=== PATIENT | male | born 1945 | race Caucasian/White ===

== ENCOUNTER → 2017-02-06 | Outpatient (CLI) | payer MEDICARE ==
--- NOTE | 2017-02-06 13:38 | XR ---
EXAMINATION TYPE: XR chest 2V DATE OF EXAM: 02/06/2017 COMPARISON: NONE HISTORY: Acute bronchitis, cough, cold-like symptoms TECHNIQUE: Frontal and lateral views of the chest are obtained. FINDINGS: There is no focal air space opacity, pleural effusion, or pneumothorax seen. The cardiac silhouette size is within normal limits. Nodular density in the right lower chest is dense and may r epresent a calcified granuloma. Postop change noted to the right shoulder. There is bronchial wall th ickening. Patient is rotated. The osseous structures are intact. IMPRESSION: Correlate for reactive airways disease, bronchitis. There may be granulomatous disease, consider short interval follow-up to assess for stability or alternatively comparison with old films if available to assess for stability. Chest CT could be performed for increased sensitivity.
== END | disposition home or self-care (01) ==
LOC: RADXRMAIN 12:57
PROVIDERS: ATTEND Family Medicine
DX: J40 Bronchitis, not specified as acute or chronic (principal)
CPT/HCPCS: 71020

== ENCOUNTER 2017-04-23 09:18 | Inpatient (IN) | payer MEDICARE ==
[2017-04-23] MEDS ORDERED: SODIUM CHLORIDE 0.9% 2,000 ML IV ONE (10:24)
[2017-04-23] MEDS ORDERED: IV VANCOMYCIN PER PHARMACY 1 EACH MISC MISCELLANE PRN (10:24)
--- NOTE | 2017-04-23 10:53 | ED ---
Skin/Abscess/FB HPI - General Chief complaint: Skin/Abscess/Foreign Body Stated complaint: left armpit lump Source: patient, family Mode of arrival: ambulatory Limitations: no limitations - History of Present Illness Initial comments: Patient is a 71-year-old male who presents for evaluation for worsening redness and pain to the left chest wall. Past medical history as below. Patient stated he developed a redness and pain to the left chest wall. He saw his primary care physician who provided an IM shot of an antibiotic which patient does not remember the name of and a prescription for Keflex as an outpatient which she's been compliant with. The redness was demarcated by the primary care physician. He noticed worsening redness outside of the lines. He also stated that he's been having intermittent fevers with a T-max of 102. He discussed this with his primary care physician who recommended evaluation in the emergency department. He states that he feels a little weak and run down but otherwise denies any headaches, URI symptoms, shortness breath, cough, chest pain, nausea, vomiting, diarrhea, pain or burning with urination. - Related Data Home Medications Medication Instructions Recorded Confirmed Aspirin EC [Ecotrin] 325 mg PO DAILY 04/23/17 04/23/17 Atenolol 25 mg PO BID 04/23/17 04/23/17 Cephalexin [Keflex] 500 mg PO Q12HR 04/23/17 04/23/17 Ibuprofen [Motrin] 800 mg PO TID PRN 04/23/17 04/23/17 Loratadine [Claritin] 10 mg PO DAILY 04/23/17 04/23/17 Losartan/Hydrochlorothiazide 1 tab PO DAILY 04/23/17 04/23/17 [Losartan-Hctz 100-12.5 mg Tab] Omeprazole 20 mg PO DAILY 04/23/17 04/23/17 amLODIPine [Norvasc] 5 mg PO DAILY 04/23/17 04/23/17 Allergies Allergy/AdvReac Type Severity Reaction Status Date / Time Sulfa (Sulfonamide Allergy Unknown Verified 04/23/17 10:11 Antibiotics) Childhood Review of Systems ROS Statement: Those systems with pertinent positive or pertinent negative responses have been documented in the HPI. ROS Other: All systems not noted in ROS Statement are negative. Past Medical History Past Medical History: GERD/Reflux, Hypertension History of Any Multi-Drug Resistant Organisms: None Reported Past Surgical History: Hernia Repair, Orthopedic Surgery Past Psychological History: No Psychological Hx Reported Smoking Status: Former smoker Past Alcohol Use History: Daily, Occasional Past Drug Use History: None Reported General Exam Limitations: no limitations General appearance: alert, in no apparent distress, other (Nontoxic appearing) Head exam: Present: atraumatic, normocephalic, normal inspection Eye exam: Present: normal appearance, PERRL, EOMI. Absent: scleral icterus, conjunctival injection, periorbital swelling ENT exam: Present: normal exam, mucous membranes moist Neck exam: Present: normal inspection. Absent: tenderness, meningismus, lymphadenopathy Respiratory exam: Present: normal lung sounds bilaterally, chest wall tenderness (There are cellulitic changes to the left lateral chest wall. Questionable area of fluctuance suggestive of an abscess. The total size is roughly 7 cm x 5 cm. Tender to the touch.). Absent: respiratory distress, wheezes, rales, rhonchi, stridor Cardiovascular Exam: Present: regular rate, normal rhythm, normal heart sounds. Absent: systolic murmur, diastolic murmur, rubs, gallop, clicks GI/Abdominal exam: Present: soft, normal bowel sounds. Absent: distended, tenderness, guarding, rebound, rigid Extremities exam: Present: normal inspection, full ROM, normal capillary refill. Absent: tenderness, pedal edema, joint swelling, calf tenderness Back exam: Present: normal inspection Neurological exam: Present: alert, oriented X3, CN II-XII intact Psychiatric exam: Present: normal affect, normal mood Skin exam: Present: warm, dry, intact, normal color. Absent: rash Course Vital Signs 04/23/17 04/23/17 09:40 11:37 Temperature 96.8 F L 98 F Pulse Rate 63 59 L Respiratory 16 18 Rate Blood Pressure 179/74 154/74 O2 Sat by Pulse 95 95 Oximetry Medical Decision Making - Medical Decision Making 1018: Patient is a 71-year-old male who presents for evaluation for worsening cellulitic changes to the left lateral chest wall with possible abscess formation. He failed outpatient therapy of Keflex. Continues to have high temperatures. We'll order blood cultures, basic labs with a lactic acid, ultrasound of the left lateral chest wall to evaluate for abscess formation. Urinalysis. 2 L IV fluid bolus, vancomycin, cefepime. Patient does not have any surgical criteria based on his current vital signs. 1125: Reevaluated the patient. He remains nontoxic appearing. Awaiting laboratory studies and ultrasound. He also has not received his medications at this time. 1210: Updated the patient on his laboratory studies. No leukocytosis or lactic acidosis. Blood cultures are pending. Awaiting ultrasound. Page 2 admitting physician for admission for failed outpatient antibiotics and worsening cellulitic changes with fevers at home. 1222: Spoke with Dr. Louis -agrees with admission. Requesting consult to Dr. Agudelo for ID. - Lab Data Result diagrams: 04/23/17 11:08 04/23/17 11:08 Lab Results 04/23/17 04/23/17 04/23/17 Range/Units 11:08 11:08 11:08 WBC 11.4 H (3.8-10.6) k/uL RBC 3.25 L (4.30-5.90) m/uL Hgb 11.2 L (13.0-17.5) gm/dL Hct 32.4 L (39.0-53.0) % MCV 99.5 (80.0-100.0) fL MCH 34.5 (25.0-35.0) pg MCHC 34.7 (31.0-37.0) g/dL RDW 13.0 (11.5-15.5) % Plt Count 239 (150-450) k/uL Neutrophils % 77 % Lymphocytes % 13 % Monocytes % 5 % Eosinophils % 2 % Basophils % 1 % Neutrophils # 8.8 H (1.3-7.7) k/uL Lymphocytes # 1.5 (1.0-4.8) k/uL Monocytes # 0.6 (0-1.0) k/uL Eosinophils # 0.2 (0-0.7) k/uL Basophils # 0.1 (0-0.2) k/uL Sodium 132 L (137-145) mmol/L Potassium 4.5 (3.5-5.1) mmol/L Chloride 96 L (98-107) mmol/L Carbon Dioxide 25 (22-30) mmol/L Anion Gap 11 mmol/L BUN 16 (9-20) mg/dL Creatinine 0.89 (0.66-1.25) mg/dL Est GFR (MDRD) Af Amer >60 (>60 ml/min/1.73 sqM) Est GFR (MDRD) Non-Af >60 (>60 ml/min/1.73 sqM) Glucose 82 (74-99) mg/dL Plasma Lactic Acid Jarrett 1.0 (0.7-2.0) mmol/L Calcium 8.5 (8.4-10.2) mg/dL Total Bilirubin 0.4 (0.2-1.3) mg/dL AST 29 (17-59) U/L ALT 41 (21-72) U/L Alkaline Phosphatase 104 (38-126) U/L Total Protein 6.8 (6.3-8.2) g/dL Albumin 3.7 (3.5-5.0) g/dL Disposition Clinical Impression: Cellulitis Disposition: ADMITTED IP TO THIS HOSP Condition: Good Referrals: Jameson Marcus DO [Primary Care Provider] - 1-2 days Decision to Admit Reason: Admit from EC
[2017-04-23] MEDS ORDERED: CEFEPIME 2 GM in SODIUM CHLORIDE 0.9% 50 ML IVPB SCH ×2 (11:00→21:00)
[2017-04-23] MEDS ORDERED: VANCOMYCIN 1,750 MG in SODIUM CHLORIDE 0.9% 250 ML IVPB ONE (11:00)
[2017-04-23] MEDS ORDERED: CEFEPIME 2 GM in SODIUM CHLORIDE 0.9% 50 ML IVPB ONE (11:30)
[2017-04-23 11:41] LABS: Basophils # (A) 0.1 k/uL (0-0.2); Basophils % (A) 1 %; CH 35.2; CHCM 35.5; Eosinophils # (A) 0.2 k/uL (0-0.7); Eosinophils % (A) 2 %; HCT 32.4 % (39.0-53.0); HDW 2.32; HGB 11.2 gm/dL (13.0-17.5); Luc # (Auto) 0.31; Luc % (Auto) 3; Lymphocytes # (A) 1.5 k/uL (1.0-4.8); Lymphocytes % (A) 13 %; MCH 34.5 pg (25.0-35.0); MCHC 34.7 g/dL (31.0-37.0); MCV 99.5 fL (80.0-100.0); Monocytes # (A) 0.6 k/uL (0-1.0); Monocytes % (A) 5 %; Neutrophils # (A) 8.8 k/uL (1.3-7.7); Neutrophils % (A) 77 %; RBC 3.25 m/uL (4.30-5.90); WBC 11.4 k/uL (3.8-10.6); WBC (Perox) 11.53
[2017-04-23 11:54] LABS: ALT 41 U/L (21-72); AST 29 U/L (17-59); Alkaline Phosphatase 104 U/L (38-126); Anion Gap 11 mmol/L; Blood Urea Nitrogen 16 mg/dL (9-20); Calcium 8.5 mg/dL (8.4-10.2); Carbon Dioxide 25 mmol/L (22-30); Chloride 96 mmol/L (98-107); Glucose 82 mg/dL (74-99); Non-African American GFR(MDRD) >60 (>60 ml/min/1.73 sqM); Potassium 4.5 mmol/L (3.5-5.1); Sodium 132 mmol/L (137-145); Total Bilirubin 0.4 mg/dL (0.2-1.3); Total Protein 6.8 g/dL (6.3-8.2)
--- NOTE | 2017-04-23 12:20 | US ---
EXAMINATION TYPE: US axilla extremity LT DATE OF EXAM: 04/23/2017 COMPARISON: NONE CLINICAL HISTORY: Pain. Left lateral chest/armpit palpable/painful area x 1 week Scanned left axilla: 2.6 x 0.9 x 3.5cm irregular complex area. IMPRESSION: 1. There is a 2.6 x 3.5 cm irregular area within the palpable abnormality. Mass or abscess in the dif ferential. Consider follow-up MRI and correlate clinically.
[2017-04-23] MEDS ORDERED: NALOXONE 0.4 MG/ML 1 ML VIAL IV PRN (12:23)
[2017-04-23 12:40] LABS: Appearance,Urine Clear (Clear); Bilirubin,Urine Negative (Negative); Glucose,Urine (UA) Negative (Negative); Ketones,Urine Negative (Negative); Leukocyte Esterase,Urine Negative (Negative); Nitrite,Urine Negative (Negative); PH, Urine 6.5 (5.0-8.0); Protein,Urine Trace (Negative); Specific Gravity,Urine 1.009 (1.001-1.035); UA Billing (MACRO vs. MICRO) CHEM; Urobilinogen,Urine <2.0 mg/dL (<2.0)
[2017-04-23 14:05] VITALS: BMI 28.4
--- NOTE | 2017-04-23 14:11 | P.HPIM ---
History of Present Illness H&P Date: 04/23/17 Chief Complaint: Abscess This is a 71-year-old male patient of Dr. Marcus with a past medical history of hypertension and gastroesophageal reflux disease. Patient and his are seen in the emergency center where he states he woke up last Thursday or Thursday and thought he had a bug bite under his left arm with reddness and swelling. He had a scheduled follow-up appointment for bronchitis on Thursday with Dr. Marcus and was placed on Keflex which he took but despite this, the area continued to grow in size with increasing redness. He came into [facility] emergency center today for evaluation. Axilla ultrasound reveals a 2.6 x 3.5 cm irregular area. Mass or abscess is in the differential. White count was 11.4 and he has been afebrile. Patient has been started on cefepime and vancomycin. Consults have been requested with infectious disease, Dr. Agudelo and general surgeon, Dr. Decker. Patient will be admitted to the [facility] floor. Patient is not currently established with surgeon in the area and has had previous surgeries and colonoscopy in [facility]. Review of Systems All systems: negative Constitutional: Denies chills, Denies fever Eyes: denies blurred vision, denies pain Ears, nose, mouth and throat: Denies headache, Denies sore throat Cardiovascular: Denies chest pain, Denies shortness of breath Respiratory: Denies cough Gastrointestinal: Denies abdominal pain, Denies diarrhea, Denies nausea, Denies vomiting Musculoskeletal: Denies myalgias Integumentary: Reports growths, Reports wounds, Denies pruritus, Denies rash Neurological: Denies numbness, Denies weakness Psychiatric: Denies anxiety, Denies depression Endocrine: Denies fatigue, Denies weight change Past Medical History Past Medical History: GERD/Reflux, Hypertension Additional Past Medical History / Comment(s): Hayfever History of Any Multi-Drug Resistant Organisms: None Reported Past Surgical History: Hernia Repair, Orthopedic Surgery, Tonsillectomy Additional Past Surgical History / Comment(s): bilateral inguinal hernia repairs , colonoscopy with polypectomy, bilateral cataract removals, epidural lumbar injections/cauterization of nerves, R rotator cuff shoulder surgery with pins. Past Anesthesia/Blood Transfusion Reactions: No Reported Reaction Past Psychological History: No Psychological Hx Reported Additional Psychological History / Comment(s): Pt resides with his spouse. He is independent. Smoking Status: Former smoker Past Alcohol Use History: Daily Additional Past Alcohol Use History / Comment(s): Pt started smoking as a teen and quit in 1976. Pt states he drinks 1-6 beers a day approximate 3 times per week but denies difficulty with alcohol. No medical marijuana or marijuana, street drug use. He lives at home with his of 20 years. Past Drug Use History: None Reported - Past Family History Father Family Medical History: No Reported History Additional Family Medical History / Comment(s): Father was healthy. He lived to be 73 or 74 yrs old. He from a "blood disease." Mother Family Medical History: Dementia Additional Family Medical History / Comment(s): Mother at the age of 73 yrs with history of Alzheimer's. Brother(s) Additional Family Medical History / Comment(s): Patient has total of 8 brothers and sisters and one of a drug overdose. Patient has one daughter with history of spina bifida. Medications and Allergies Home Medications Medication Instructions Recorded Confirmed Type Aspirin EC [Ecotrin] 325 mg PO DAILY 04/23/17 04/23/17 History Atenolol 25 mg PO BID 04/23/17 04/23/17 History Cephalexin [Keflex] 500 mg PO Q12HR 04/23/17 04/23/17 History Ibuprofen [Motrin] 800 mg PO TID PRN 04/23/17 04/23/17 History Loratadine [Claritin] 10 mg PO DAILY 04/23/17 04/23/17 History Losartan/Hydrochlorothiazide 1 tab PO DAILY 04/23/17 04/23/17 History [Losartan-Hctz 100-12.5 mg Tab] Omeprazole 20 mg PO DAILY 04/23/17 04/23/17 History amLODIPine [Norvasc] 5 mg PO DAILY 04/23/17 04/23/17 History Allergies Allergy/AdvReac Type Severity Reaction Status Date / Time Sulfa (Sulfonamide Allergy Unknown Verified 04/23/17 10:11 Antibiotics) Childhood Physical Exam Vitals: Vital Signs Temp Pulse Resp BP Pulse Ox 04/23/17 12:59 98 F 71 18 169/85 94 L 04/23/17 11:37 98 F 59 L 18 154/74 95 04/23/17 09:40 96.8 F L 63 16 179/74 95 Intake and Output 04/22/17 04/23/17 04/23/17 22:59 06:59 14:59 Intake Total 2500 Output Total 250 Balance 2250 Intake: Amount of Fluid Infused ( 2500 ml) Output: Urine 250 Other: Weight 77.111 kg Patient Weight 04/24/17 06:59 Weight 77.111 kg Gen: This is a 71-year-old male. He is sitting up on the stretcher and appears to be comfortable. HEENT: Head is atraumatic, normocephalic. Pupils equal, round. Sclerae is anicteric. NECK: Supple. No JVD. No lymphadenopathy. No thyromegaly. LUNGS: Clear to auscultation. No wheezes or rhonchi. No intercostal retractions. HEART: Regular rate and rhythm. No murmur. ABDOMEN: Soft. Bowel sounds are present. No masses. No tenderness. EXTREMITIES: No pedal edema. No calf tenderness. There is a large mass under the left axilla extending into the anterior and lateral chest wall with firmness and surrounding erythema NEUROLOGICAL: Patient is awake, alert and oriented x3. Cranial nerves 2 through 12 are grossly intact. Results CBC & Chem 7: 04/23/17 11:08 04/23/17 11:08 Labs: Abnormal Lab Results - Last 24 Hours (Table) 04/23/17 04/23/17 04/23/17 Range/Units 11:08 11:08 12:25 WBC 11.4 H (3.8-10.6) k/uL RBC 3.25 L (4.30-5.90) m/uL Hgb 11.2 L (13.0-17.5) gm/dL Hct 32.4 L (39.0-53.0) % Neutrophils # 8.8 H (1.3-7.7) k/uL Sodium 132 L (137-145) mmol/L Chloride 96 L (98-107) mmol/L Urine Protein Trace H (Negative) Thrombosis Risk Factor Assmnt - DVT/VTE Prophylaxis DVT/VTE Prophylaxis: Pharmacologic Prophylaxis ordered - Choose All That Apply Any of the Below Risk Factors Present?: Yes Each Factor Represents 1 point: Obesity (BMI >25) Other Risk Factors: Yes Each Risk Factor Represents 2 Points: Age 61-74 years Other congenital or acquired thrombophilia - If yes, enter type in comment: No Thrombosis Risk Factor Assessment Total Risk Factor Score: 3 Thrombosis Risk Factor Assessment Level: Moderate Risk Assessment and Plan Plan: 1. Left axilla abscess failed outpatient treatment. Patient is currently on cefepime and vancomycin. Consult with Dr. Agudelo and general surgeon, Dr Decker. 2. Hypertension. Continue atenolol 25 mg twice daily, Norvasc 5 mg daily, losartan hydrochlorothiazide 1 daily. 3. Gastrointestinal prophylaxis and gastroesophageal reflux disease. Continue omeprazole. 4. History of regular alcohol intake, monitor for DTs. 5. DVT prophylaxis. Heparin subcu. Patient will be admitted to the hospital for a minimum of 2 night stay. Discharge plan: Return home Impression and plan of care have been directed as dictated by the signing physician. Miranda Jasso nurse practitioner acting as scribe for signing physician.
--- NOTE | 2017-04-23 14:16 | P.CONS ---
History of Present Illness - Reason for Consult Consult date: 04/23/17 Abscess - History of Present Illness This is a 71-year-old male with a past medical history of hypertension and gastroesophageal reflux disease. Patient and his are seen in the emergency center where he states he woke up last Thursday or Thursday and thought he had a bug bite under his left arm with reddness and swelling. He had a scheduled follow-up appointment for bronchitis on Thursday with Dr. Marcus and was placed on Keflex which he took but despite this, the area continued to grow in size with increasing redness. He came into [facility] emergency center today for evaluation. Axilla ultrasound reveals a 2.6 x 3.5 cm irregular area. Mass or abscess is in the differential. White count was 11.4 and he has been afebrile. Patient has been started on cefepime and vancomycin. Consult with general surgeon, Dr. Decker. Blood culture has status received. Review of Systems All systems: negative Constitutional: Denies chills, Denies fever Eyes: denies blurred vision, denies pain Ears, nose, mouth and throat: Denies headache, Denies sore throat Cardiovascular: Denies chest pain, Denies shortness of breath Respiratory: Denies cough Gastrointestinal: Denies abdominal pain, Denies diarrhea, Denies nausea, Denies vomiting Musculoskeletal: Denies myalgias Integumentary: Reports growths, Reports wounds, Denies pruritus, Denies rash Neurological: Denies numbness, Denies weakness Psychiatric: Denies anxiety, Denies depression Endocrine: Denies fatigue, Denies weight change Past Medical History Past Medical History: GERD/Reflux, Hypertension Additional Past Medical History / Comment(s): Hayfever History of Any Multi-Drug Resistant Organisms: None Reported Past Surgical History: Hernia Repair, Orthopedic Surgery, Tonsillectomy Additional Past Surgical History / Comment(s): bilateral inguinal hernia repairs , colonoscopy with polypectomy, bilateral cataract removals, epidural lumbar injections/cauterization of nerves, R rotator cuff shoulder surgery with pins. Past Anesthesia/Blood Transfusion Reactions: No Reported Reaction Past Psychological History: No Psychological Hx Reported Additional Psychological History / Comment(s): Pt resides with his spouse. He is independent. Smoking Status: Former smoker Past Alcohol Use History: Daily Additional Past Alcohol Use History / Comment(s): Pt started smoking as a teen and quit in 1976. Pt states he drinks 1-6 beers a day approximate 3 times per week but denies difficulty with alcohol. No medical marijuana or marijuana, street drug use. He lives at home with his of 20 years. Past Drug Use History: None Reported - Past Family History Father Family Medical History: No Reported History Additional Family Medical History / Comment(s): Father was healthy. He lived to be 73 or 74 yrs old. He from a "blood disease." Mother Family Medical History: Dementia Additional Family Medical History / Comment(s): Mother at the age of 73 yrs with history of Alzheimer's. Brother(s) Additional Family Medical History / Comment(s): Patient has total of 8 brothers and sisters and one of a drug overdose. Patient has one daughter with history of spina bifida. Medications and Allergies Home Medications Medication Instructions Recorded Confirmed Type Aspirin EC [Ecotrin] 325 mg PO DAILY 04/23/17 04/23/17 History Atenolol 25 mg PO BID 04/23/17 04/23/17 History Cephalexin [Keflex] 500 mg PO Q12HR 04/23/17 04/23/17 History Ibuprofen [Motrin] 800 mg PO TID PRN 04/23/17 04/23/17 History Loratadine [Claritin] 10 mg PO DAILY 04/23/17 04/23/17 History Losartan/Hydrochlorothiazide 1 tab PO DAILY 04/23/17 04/23/17 History [Losartan-Hctz 100-12.5 mg Tab] Omeprazole 20 mg PO DAILY 04/23/17 04/23/17 History amLODIPine [Norvasc] 5 mg PO DAILY 04/23/17 04/23/17 History Allergies Allergy/AdvReac Type Severity Reaction Status Date / Time Sulfa (Sulfonamide Allergy Unknown Verified 04/23/17 10:11 Antibiotics) Childhood Physical Exam Vitals: Vital Signs Temp Pulse Pulse Resp BP BP Pulse Ox 04/23/17 13:53 96.0 F L 74 18 191/88 90 L 04/23/17 12:59 98 F 71 18 169/85 94 L 04/23/17 11:37 98 F 59 L 18 154/74 95 04/23/17 09:40 96.8 F L 63 16 179/74 95 Intake and Output 04/22/17 04/23/17 04/23/17 22:59 06:59 14:59 Intake Total 2500 Output Total 250 Balance 2250 Intake: Amount of Fluid Infused ( 2500 ml) Output: Urine 250 Other: Weight 79.5 kg Patient Weight 04/24/17 06:59 Weight 79.5 kg Gen: This is a 71-year-old male. He is sitting up on the stretcher and appears to be comfortable. HEENT: Head is atraumatic, normocephalic. Pupils equal, round. Sclerae is anicteric. NECK: Supple. No JVD. No lymphadenopathy. No thyromegaly. LUNGS: Clear to auscultation. No wheezes or rhonchi. No intercostal retractions. HEART: Regular rate and rhythm. No murmur. ABDOMEN: Soft. Bowel sounds are present. No masses. No tenderness. EXTREMITIES: No pedal edema. No calf tenderness. There is a large mass under the left axilla extending into the anterior and lateral chest wall with firmness and surrounding erythema NEUROLOGICAL: Patient is awake, alert and oriented x3. Cranial nerves 2 through 12 are grossly intact. Results Results: Laboratory Results WBC 11.4 k/uL (3.8-10.6) H 04/23/17 11:08 RBC 3.25 m/uL (4.30-5.90) L 04/23/17 11:08 Hgb 11.2 gm/dL (13.0-17.5) L 04/23/17 11:08 Hct 32.4 % (39.0-53.0) L 04/23/17 11:08 MCV 99.5 fL (80.0-100.0) 04/23/17 11:08 MCH 34.5 pg (25.0-35.0) 04/23/17 11:08 MCHC 34.7 g/dL (31.0-37.0) 04/23/17 11:08 RDW 13.0 % (11.5-15.5) 04/23/17 11:08 Plt Count 239 k/uL (150-450) 04/23/17 11:08 Neutrophils % 77 % 04/23/17 11:08 Lymphocytes % 13 % 04/23/17 11:08 Monocytes % 5 % 04/23/17 11:08 Eosinophils % 2 % 04/23/17 11:08 Basophils % 1 % 04/23/17 11:08 Neutrophils # 8.8 k/uL (1.3-7.7) H 04/23/17 11:08 Lymphocytes # 1.5 k/uL (1.0-4.8) 04/23/17 11:08 Monocytes # 0.6 k/uL (0-1.0) 04/23/17 11:08 Eosinophils # 0.2 k/uL (0-0.7) 04/23/17 11:08 Basophils # 0.1 k/uL (0-0.2) 04/23/17 11:08 Sodium 132 mmol/L (137-145) L 04/23/17 11:08 Potassium 4.5 mmol/L (3.5-5.1) 04/23/17 11:08 Chloride 96 mmol/L (98-107) L 04/23/17 11:08 Carbon Dioxide 25 mmol/L (22-30) 04/23/17 11:08 Anion Gap 11 mmol/L 04/23/17 11:08 BUN 16 mg/dL (9-20) 04/23/17 11:08 Creatinine 0.89 mg/dL (0.66-1.25) 04/23/17 11:08 Est GFR (MDRD) Af Amer >60 (>60 ml/min/1.73 sqM) 04/23/17 11:08 Est GFR (MDRD) Non-Af >60 (>60 ml/min/1.73 sqM) 04/23/17 11:08 Glucose 82 mg/dL (74-99) 04/23/17 11:08 Plasma Lactic Acid Jarrett 1.0 mmol/L (0.7-2.0) 04/23/17 11:08 Calcium 8.5 mg/dL (8.4-10.2) 04/23/17 11:08 Total Bilirubin 0.4 mg/dL (0.2-1.3) 04/23/17 11:08 AST 29 U/L (17-59) 04/23/17 11:08 ALT 41 U/L (21-72) 04/23/17 11:08 Alkaline Phosphatase 104 U/L (38-126) 04/23/17 11:08 Total Protein 6.8 g/dL (6.3-8.2) 04/23/17 11:08 Albumin 3.7 g/dL (3.5-5.0) 04/23/17 11:08 Urine Color Light Yellow 04/23/17 12:25 Urine Appearance Clear (Clear) 04/23/17 12:25 Urine pH 6.5 (5.0-8.0) 04/23/17 12:25 Ur Specific [place] 1.009 (1.001-1.035) 04/23/17 12:25 Urine Protein Trace (Negative) H 04/23/17 12:25 Urine Glucose (UA) Negative (Negative) 04/23/17 12:25 Urine Ketones Negative (Negative) 04/23/17 12:25 Urine Blood Negative (Negative) 04/23/17 12:25 Urine Nitrite Negative (Negative) 04/23/17 12:25 Urine Bilirubin Negative (Negative) 04/23/17 12:25 Urine Urobilinogen <2.0 mg/dL (<2.0) 04/23/17 12:25 Ur Leukocyte Esterase Negative (Negative) 04/23/17 12:25 CBC & Chem 7: 04/24/17 08:29 04/23/17 11:08 Labs: Abnormal Lab Results - Last 24 Hours (Table) 04/23/17 04/23/17 04/23/17 Range/Units 11:08 11:08 12:25 WBC 11.4 H (3.8-10.6) k/uL RBC 3.25 L (4.30-5.90) m/uL Hgb 11.2 L (13.0-17.5) gm/dL Hct 32.4 L (39.0-53.0) % Neutrophils # 8.8 H (1.3-7.7) k/uL Sodium 132 L (137-145) mmol/L Chloride 96 L (98-107) mmol/L Urine Protein Trace H (Negative) Assessment and Plan Plan: This is a 71-year-old male who presents to hospital with a left abscess of failed outpatient treatment with Keflex. He is currently on antibiotics in the form of cefepime and vancomycin. Cefepime will be changed to cefazolin and patient will be continued on vancomycin. Blood culture is status received. No current drainage. Consult in place for general surgeon, Dr Decker, with anticipation need for I&D and cultures may be obtained at that time. Toradol has been added for pain and inflammation scheduled IV. Continue supportive care. Further recommendations as patient progresses. The above dictated assessment and findings were discussed with Dr. Agudelo. The impression and plan of care have been directed as dictated. Miranda Jasso nurse practitioner acting as scribe for Dr. Agudelo.
[2017-04-23] MEDS: KETOROLAC 30 MG/ML 1 ML VIAL IVP SCH ×3 (14:26→23:53)
[2017-04-23] MEDS: amLODIPine 5 MG TAB PO SCH (15:12)
[2017-04-23] MEDS: LOSARTAN-HCTZ 50-12.5 MG 1 EACH TAB PO SCH (15:13)
[2017-04-23] MEDS: LOSARTAN 50 MG TAB PO SCH (15:13)
[2017-04-23] MEDS: HEPARIN SODIUM,PORCINE 5,000 UNIT/ML 1 ML VIAL SQ SCH ×2 (15:15→23:58)
[2017-04-23] MEDS ORDERED: LIDOCAINE 2% INJ 20 MG/ML (20 ML MDV) SQ ONE (15:58)
[2017-04-23] MEDS ORDERED: MORPHINE SULFATE 2 MG/ML SYRINGE IVP ONE (15:58)
--- NOTE | 2017-04-23 16:43 | P.GSCN ---
History of Present Illness Consult date: 04/23/17 Reason for Consult: Axillary Abscess Requesting physician: Aden Louis History of present illness: 71-year-old male presents to the hospital complaining of left axillary pain. He states that he had a pimple at the site that has grown over the past week. He states that he was trying antibiotics and had no success with this. He denies having any fevers chills chest pain or shortness of breath. He states that the redness around the site has increased and the site has not been draining anything. He denies having any similar symptoms previously. Has any history of diabetes. He denies any history of recent shaving of this area. No additional complaints at this time. Review of Systems All systems: negative Past Medical History Past Medical History: GERD/Reflux, Hypertension Additional Past Medical History / Comment(s): Hayfever History of Any Multi-Drug Resistant Organisms: None Reported Past Surgical History: Hernia Repair, Orthopedic Surgery, Tonsillectomy Additional Past Surgical History / Comment(s): bilateral inguinal hernia repairs , colonoscopy with polypectomy, bilateral cataract removals, epidural lumbar injections/cauterization of nerves, R rotator cuff shoulder surgery with pins. Past Anesthesia/Blood Transfusion Reactions: No Reported Reaction Past Psychological History: No Psychological Hx Reported Additional Psychological History / Comment(s): Pt resides with his spouse. He is independent. Smoking Status: Former smoker Past Alcohol Use History: Daily Additional Past Alcohol Use History / Comment(s): Pt started smoking as a teen and quit in 1976. Pt states he drinks 1-6 beers a day approximate 3 times per week but denies difficulty with alcohol. No medical marijuana or marijuana, street drug use. He lives at home with his of 20 years. Past Drug Use History: None Reported - Past Family History Father Family Medical History: No Reported History Additional Family Medical History / Comment(s): Father was healthy. He lived to be 73 or 74 yrs old. He from a "blood disease." Mother Family Medical History: Dementia Additional Family Medical History / Comment(s): Mother at the age of 73 yrs with history of Alzheimer's. Brother(s) Additional Family Medical History / Comment(s): Patient has total of 8 brothers and sisters and one of a drug overdose. Patient has one daughter with history of spina bifida. Medications and Allergies Home Medications Medication Instructions Recorded Confirmed Type Aspirin EC [Ecotrin] 325 mg PO DAILY 04/23/17 04/23/17 History Atenolol 25 mg PO BID 04/23/17 04/23/17 History Cephalexin [Keflex] 500 mg PO Q12HR 04/23/17 04/23/17 History Ibuprofen [Motrin] 800 mg PO TID PRN 04/23/17 04/23/17 History Loratadine [Claritin] 10 mg PO DAILY 04/23/17 04/23/17 History Losartan/Hydrochlorothiazide 1 tab PO DAILY 04/23/17 04/23/17 History [Losartan-Hctz 100-12.5 mg Tab] Omeprazole 20 mg PO DAILY 04/23/17 04/23/17 History amLODIPine [Norvasc] 5 mg PO DAILY 04/23/17 04/23/17 History Allergies Allergy/AdvReac Type Severity Reaction Status Date / Time Sulfa (Sulfonamide Allergy Unknown Verified 04/23/17 10:11 Antibiotics) Childhood Surgical - Exam Osteopathic Statement: *. No significant issues noted on an osteopathic structural exam other than those noted in the History and Physical/Consult. Vital Signs Temp Pulse Resp BP Pulse Ox 96.8 F L 63 16 179/74 95 04/23/17 09:40 04/23/17 09:40 04/23/17 09:40 04/23/17 09:40 04/23/17 09:40 - General well developed, well nourished, no distress - Eyes PERRL, normal ocular movement - ENT normal nares, no congestion - Neck no masses, trachea midline, no lymphadectomy - Respiratory normal expansion, clear to auscultation - Cardiovascular Rhythm: regular Heart Sounds: normal: S1, S2 - Abdomen Abdomen: soft, non tender, bowel sounds, no guarding, no rigid, no rebound, no distended - Integumentary Left axilla with palpable fluctuant center with induration surrounding and erythema surrounding. - Neurologic normal coordination, normal sensation - Musculoskeletal normal gait - Psychiatric oriented to time, oriented to person, oriented to place, speech is normal Results - Labs 04/23/17 11:08 04/23/17 11:08 Abnormal Lab Results - Last 24 Hours (Table) 04/23/17 04/23/17 04/23/17 Range/Units 11:08 11:08 12:25 WBC 11.4 H (3.8-10.6) k/uL RBC 3.25 L (4.30-5.90) m/uL Hgb 11.2 L (13.0-17.5) gm/dL Hct 32.4 L (39.0-53.0) % Neutrophils # 8.8 H (1.3-7.7) k/uL Sodium 132 L (137-145) mmol/L Chloride 96 L (98-107) mmol/L Urine Protein Trace H (Negative) Diabetes panel 04/23/17 Range/Units 11:08 Sodium 132 L (137-145) mmol/L Potassium 4.5 (3.5-5.1) mmol/L Chloride 96 L (98-107) mmol/L Carbon Dioxide 25 (22-30) mmol/L BUN 16 (9-20) mg/dL Creatinine 0.89 (0.66-1.25) mg/dL Glucose 82 (74-99) mg/dL Calcium 8.5 (8.4-10.2) mg/dL AST 29 (17-59) U/L ALT 41 (21-72) U/L Alkaline Phosphatase 104 (38-126) U/L Total Protein 6.8 (6.3-8.2) g/dL Albumin 3.7 (3.5-5.0) g/dL Calcium panel 04/23/17 Range/Units 11:08 Calcium 8.5 (8.4-10.2) mg/dL Albumin 3.7 (3.5-5.0) g/dL Pituitary panel 04/23/17 Range/Units 11:08 Sodium 132 L (137-145) mmol/L Potassium 4.5 (3.5-5.1) mmol/L Chloride 96 L (98-107) mmol/L Carbon Dioxide 25 (22-30) mmol/L BUN 16 (9-20) mg/dL Creatinine 0.89 (0.66-1.25) mg/dL Glucose 82 (74-99) mg/dL Calcium 8.5 (8.4-10.2) mg/dL Adrenal panel 04/23/17 Range/Units 11:08 Sodium 132 L (137-145) mmol/L Potassium 4.5 (3.5-5.1) mmol/L Chloride 96 L (98-107) mmol/L Carbon Dioxide 25 (22-30) mmol/L BUN 16 (9-20) mg/dL Creatinine 0.89 (0.66-1.25) mg/dL Glucose 82 (74-99) mg/dL Calcium 8.5 (8.4-10.2) mg/dL Total Bilirubin 0.4 (0.2-1.3) mg/dL AST 29 (17-59) U/L ALT 41 (21-72) U/L Alkaline Phosphatase 104 (38-126) U/L Total Protein 6.8 (6.3-8.2) g/dL Albumin 3.7 (3.5-5.0) g/dL - Imaging Additional studies: Reviewed ultrasound of the left axilla. 2.5 x 3.5 abscess noted. Assessment and Plan (1) Abscess Status: Acute Plan: 71-year-old male with left axillary abscess. Plan for incision and drainage of the site at bedside. I will place a packing into this site. Agree with antibiotic therapy. Will take cultures during drainage and will follow-up. Thank you for this consultation. I look forward in providing in this patient's care.
--- NOTE | 2017-04-23 16:48 | P.PCN ---
Date of Procedure: 04/23/17 Preoperative Diagnosis: Axillary abscess Left Postoperative Diagnosis: Axillary abscess left Procedure(s) Performed: Incision and drainage of left axillary abscess Implants: Anesthesia: local Surgeon: Sara Decker Estimated Blood Loss (ml): 5 Pathology: other (Cultures sent both aerobic and anaerobic) Condition: stable Disposition: floor Indications for Procedure: 71-year-old male complains of left axillary abscess that has increased in size and is fluctuant and surrounded by induration and erythema. Operative Findings: 10 mL of purulent drainage removed. Aerobic and Anaerobic cultures sent. Description of Procedure: The patient's left axilla was prepped and draped in regular sterile fashion. 2 % lidocaine was infused at the anticipated incision site. Incision was made. Immediate output of 10 mL of purulent material was noted. Cultures were taken. Hemostat was used to break up any loculations within the abscess cavity. Irrigation was then placed within the cavity. Iodoform packing was placed. Dressing applied. The patient tolerated the procedure well.
--- NOTE | 2017-04-23 20:35 | P.CON ---
Consult Note - . Consult date: 04/23/17 Assessment/Plan:: This is a 71-year-old male with a past medical history of hypertension and gastroesophageal reflux disease. Patient and his are seen in the emergency center where he states he woke up last Thursday or Thursday and thought he had a bug bite under his left arm with reddness and swelling. He had a scheduled follow-up appointment for bronchitis on Thursday with Dr. Marcus and was placed on Keflex which he took but despite this, the area continued to grow in size with increasing redness. He came into [facility] emergency center today for evaluation. Axilla ultrasound reveals a 2.6 x 3.5 cm irregular area. Mass or abscess is in the differential. White count was 11.4 and he has been afebrile. Patient has been started on cefepime and vancomycin. Consult with general surgeon, Dr. Decker. Blood culture has status received. Has now had a bedside debridement. Wound is packed. Please see the consult note is dictated by nurse practitioner Mrs. Miranda Jasso. Pleasant 71-year-old gentleman without a significant history of prior skin lesions. Is retired but does [place] [facility] the [facility] in [place]. No other ill contacts. At this time antibiotic therapy is altered to cefazolin with vancomycin pending culture data. Quite unlikely that this is a gram-negative organism, and the cefazolin and vancomycin will give adequate coverage for MSSA , strep and MRSA. Local wound care will be advised once the ulceration is analyzed. Pain control is improved with Toradol that has been added. Leukocytosis will be rechecked in the a.m. Multivitamin with zinc is added. We 'll check his nutritional status to make sure he has adequate protein status. The blood sugar is normal. Does not relate that he goes to a gym. He however does have 5 children and grandchildren. No other risk factors are noted for infection at this time. I agree with the evaluation, assessment and plan as dictated by nurse practitioner Mrs. Miranda Jasso.
[2017-04-23] MEDS: ATENOLOL 25 MG TAB PO SCH (21:06)
[2017-04-23] MEDS: VANCOMYCIN 1,500 MG in SODIUM CHLORIDE 0.9% 250 ML IVPB SCH (21:13)
[2017-04-23] MEDS: ceFAZolin 2 GM in SODIUM CHLORIDE 0.9% 100 ML IVPB SCH (23:53)
[2017-04-24] MEDS: KETOROLAC 30 MG/ML 1 ML VIAL IVP SCH ×4 (05:37→23:37)
[2017-04-24 08:48] LABS: Basophils % (A) 0 %; CH 35.2; CHCM 35.1; Eosinophils # (A) 0.1 k/uL (0-0.7); Eosinophils % (A) 1 %; HCT 31.9 % (39.0-53.0); HDW 2.35; HGB 10.7 gm/dL (13.0-17.5); Luc # (Auto) 0.23; Luc % (Auto) 2; Lymphocytes # (A) 1.6 k/uL (1.0-4.8); Lymphocytes % (A) 14 %; MCH 33.8 pg (25.0-35.0); MCHC 33.7 g/dL (31.0-37.0); MCV 100.4 fL (80.0-100.0); Monocytes # (A) 0.5 k/uL (0-1.0); Monocytes % (A) 5 %; Neutrophils # (A) 8.7 k/uL (1.3-7.7); Neutrophils % (A) 78 %; RBC 3.18 m/uL (4.30-5.90); RDW 13.1 % (11.5-15.5); WBC 11.2 k/uL (3.8-10.6); WBC (Perox) 11.66
[2017-04-24] MEDS: amLODIPine 5 MG TAB PO SCH (08:49)
[2017-04-24] MEDS: HEPARIN SODIUM,PORCINE 5,000 UNIT/ML 1 ML VIAL SQ SCH ×3 (08:49→23:36)
[2017-04-24] MEDS: ASPIRIN 325 MG TAB PO SCH (08:49)
[2017-04-24] MEDS: LOSARTAN 50 MG TAB PO SCH (08:49)
[2017-04-24] MEDS: LOSARTAN-HCTZ 50-12.5 MG 1 EACH TAB PO SCH (08:49)
[2017-04-24] MEDS: ceFAZolin 2 GM in SODIUM CHLORIDE 0.9% 100 ML IVPB SCH ×3 (08:49→23:39)
[2017-04-24] MEDS: ATENOLOL 25 MG TAB PO SCH ×2 (08:49→21:26)
[2017-04-24] MEDS: PANTOPRAZOLE 40 MG TABLET PO SCH (08:49)
[2017-04-24] MEDS: LORATADINE 10 MG TAB PO SCH (08:49)
--- NOTE | 2017-04-24 09:32 | P.PN ---
Subjective Principal diagnosis: Left axillary abscess Patient seen and examined at bedside. He states he is feeling much better. Pain in left axilla has decreased. He states he has had a few dressing changes overnight due to saturation of his dressing. Denies feeling feverish. He denies any chills. He has no additional complaints at this time. Objective - Vital Signs Vital signs: Vital Signs Temp 97.2 F L 04/24/17 07:00 Pulse 76 04/24/17 07:00 Resp 18 04/24/17 07:00 BP 170/74 04/24/17 07:00 Pulse Ox 96 04/24/17 07:00 Intake & Output 04/23/17 04/24/17 04/24/17 18:59 06:59 18:59 Intake Total 2500 Output Total 250 Balance 2250 Weight 79.5 kg Intake: Amount of Fluid Infused ( 2500 ml) Output: Urine 250 Other: # Voids 1 1 - Constitutional General appearance: Present: average body habitus, cooperative, no acute distress - EENT Eyes: Present: EOMI, PERRLA ENT: Present: hearing grossly normal - Neck Neck: Present: normal ROM. Absent: lymphadenopathy - Respiratory Details: No Difficulty with respiration - Cardiovascular Rhythm: regular Heart sounds: normal: S1, S2 - Gastrointestinal General gastrointestinal: Present: normal bowel sounds, soft. Absent: distended , rigid, tenderness - Integumentary Integumentary Comment(s): Improved left axillary induration. Improved left axillary erythema. Continued mild drainage from incision site. No areas of palpable fluctuance - Musculoskeletal Musculoskeletal: Present: gait normal - Psychiatric Psychiatric: Present: A&O x's 3, appropriate affect, intact judgment & insight - Labs CBC & Chem 7: 04/24/17 08:29 04/23/17 11:08 Labs: Abnormal Lab Results - Last 24 Hours (Table) 04/23/17 04/23/17 04/23/17 Range/Units 11:08 11:08 12:25 WBC 11.4 H (3.8-10.6) k/uL RBC 3.25 L (4.30-5.90) m/uL Hgb 11.2 L (13.0-17.5) gm/dL Hct 32.4 L (39.0-53.0) % MCV (80.0-100.0) fL Neutrophils # 8.8 H (1.3-7.7) k/uL Sodium 132 L (137-145) mmol/L Chloride 96 L (98-107) mmol/L Urine Protein Trace H (Negative) 04/24/17 Range/Units 08:29 WBC 11.2 H (3.8-10.6) k/uL RBC 3.18 L (4.30-5.90) m/uL Hgb 10.7 L (13.0-17.5) gm/dL Hct 31.9 L (39.0-53.0) % MCV 100.4 H (80.0-100.0) fL Neutrophils # 8.7 H (1.3-7.7) k/uL Sodium (137-145) mmol/L Chloride (98-107) mmol/L Urine Protein (Negative) Microbiology - Last 24 Hours (Table) 04/23/17 16:30 Gram Stain - Preliminary Axilla - Left Wound Culture - Preliminary 04/23/17 16:30 Anaerobic Culture - Preliminary Axilla - Left Assessment and Plan (1) Abscess Status: Acute Plan: 71-year-old male with left axillary abscess. Incision and drainage performed yesterday. The site has much decreased induration and packing has been removed. Continue dressing changes for saturation. WBC 11.2 from 11.4, continue antibiotics. Continue to allow drainage from incision site. Discussed wound care with the patient.
[2017-04-24] MEDS: VANCOMYCIN 1,500 MG in SODIUM CHLORIDE 0.9% 250 ML IVPB SCH ×2 (10:04→21:25)
[2017-04-24] MEDS: MULTIVITAMINS, THERA 1 EACH TAB PO SCH (11:20)
--- NOTE | 2017-04-24 13:56 | P.PN ---
Subjective This is a 71-year-old male patient of Dr. Marcus with a past medical history of hypertension and gastroesophageal reflux disease. Patient and his are seen in the emergency center where he states he woke up last Thursday or Thursday and thought he had a bug bite under his left arm with reddness and swelling. He had a scheduled follow-up appointment for bronchitis on Thursday with Dr. Marcus and was placed on Keflex which he took but despite this, the area continued to grow in size with increasing redness. He came into [facility] emergency center today for evaluation. Axilla ultrasound reveals a 2.6 x 3.5 cm irregular area. Mass or abscess is in the differential. White count was 11.4 and he has been afebrile. Patient has been started on cefepime and vancomycin. Consults have been requested with infectious disease, Dr. Agudelo and general surgeon, Dr. Decker. Patient will be admitted [facility] floor. Patient is not currently established with surgeon in the area and has had previous surgeries and colonoscopy in [facility]. 04/24: Patient has been seen by and is status post I and D of the left axillary abscess with removal of 10 ML's of purulent material. Patient states he is feeling much improvement. He has had multiple dressing changes during the night due to saturation the patient states the drainage has decreased significantly this morning. White count is a same at 11.2. Temperature max is 99.9. Wound cultures are in progress. Blood cultures status received. Patient has been seen by Dr. Agudelo and antibiotics were changed to cefazolin and vancomycin. He is on Toradol for pain control. Objective - Vital Signs Vital signs: Vital Signs Temp 97.2 F L 04/24/17 07:00 Pulse 76 04/24/17 07:00 Resp 18 04/24/17 07:00 BP 170/74 04/24/17 07:00 Pulse Ox 96 04/24/17 07:00 Intake & Output 04/23/17 04/24/17 04/24/17 18:59 06:59 18:59 Intake Total 2500 Output Total 250 Balance 2250 Weight 79.5 kg Intake: Amount of Fluid Infused ( 2500 ml) Output: Urine 250 Other: # Voids 1 1 - Exam Gen: This is a 71-year-old male. He is sitting up on the stretcher and appears to be comfortable. HEENT: Head is atraumatic, normocephalic. Pupils equal, round. Sclerae is anicteric. NECK: Supple. No JVD. No lymphadenopathy. No thyromegaly. LUNGS: Clear to auscultation. No wheezes or rhonchi. No intercostal retractions. HEART: Regular rate and rhythm. No murmur. ABDOMEN: Soft. Bowel sounds are present. No masses. No tenderness. EXTREMITIES: No pedal edema. No calf tenderness. There is a large mass under the left axilla extending into the anterior and lateral chest wall with firmness and surrounding erythema NEUROLOGICAL: Patient is awake, alert and oriented x3. Cranial nerves 2 through 12 are grossly intact. - Labs CBC & Chem 7: 04/24/17 08:29 04/23/17 11:08 Labs: Abnormal Lab Results - Last 24 Hours (Table) 04/23/17 04/23/17 04/23/17 Range/Units 11:08 11:08 12:25 WBC 11.4 H (3.8-10.6) k/uL RBC 3.25 L (4.30-5.90) m/uL Hgb 11.2 L (13.0-17.5) gm/dL Hct 32.4 L (39.0-53.0) % MCV (80.0-100.0) fL Neutrophils # 8.8 H (1.3-7.7) k/uL Sodium 132 L (137-145) mmol/L Chloride 96 L (98-107) mmol/L Urine Protein Trace H (Negative) 04/24/17 Range/Units 08:29 WBC 11.2 H (3.8-10.6) k/uL RBC 3.18 L (4.30-5.90) m/uL Hgb 10.7 L (13.0-17.5) gm/dL Hct 31.9 L (39.0-53.0) % MCV 100.4 H (80.0-100.0) fL Neutrophils # 8.7 H (1.3-7.7) k/uL Sodium (137-145) mmol/L Chloride (98-107) mmol/L Urine Protein (Negative) Microbiology - Last 24 Hours (Table) 04/23/17 16:30 Gram Stain - Preliminary Axilla - Left Wound Culture - Preliminary 04/23/17 16:30 Anaerobic Culture - Preliminary Axilla - Left Assessment and Plan Plan: 1. Left axilla abscess failed outpatient treatment. Patient is currently on cefepime and vancomycin. Consult with Dr. Agudelo and general surgeon, Dr Decker. 2. Hypertension. Continue atenolol 25 mg twice daily, Norvasc 5 mg daily, losartan hydrochlorothiazide 1 daily. 3. Gastrointestinal prophylaxis and gastroesophageal reflux disease. Continue omeprazole. 4. History of regular alcohol intake, monitor for DTs. 5. DVT prophylaxis. Heparin subcu. Discharge plan: Return home Impression and plan of care have been directed as dictated by the signing physician. Miranda Jasso nurse practitioner acting as scribe for signing physician.
--- NOTE | 2017-04-24 18:17 | P.PN ---
Subjective Principal diagnosis: Abscess left axilla Objective - Vital Signs Vital signs: Vital Signs Temp 97.8 F 04/24/17 15:00 Pulse 61 04/24/17 15:00 Resp 18 04/24/17 15:00 BP 149/67 04/24/17 15:00 Pulse Ox 95 04/24/17 15:00 Intake & Output 04/23/17 04/24/17 04/24/17 18:59 06:59 18:59 Intake Total 2500 350 Output Total 250 Balance 2250 350 Weight 79.5 kg Intake: IV 350 Vancomycin 1,500 mg In 250 Sodium Chloride 0.9% 250 ml @ 125 mls/hr IVPB Q12H CLAUDIA Rx#:[id number] ceFAZolin 2 gm In Sodium 100 Chloride 0.9% 100 ml @ 100 mls/hr IVPB Q8HR CLAUDIA Rx#:[id number] Amount of Fluid Infused ( 2500 ml) Output: Urine 250 Other: # Voids 1 1 - Exam Gen: This is a 71-year-old male. He is sitting up on the stretcher and appears to be comfortable. HEENT: Head is atraumatic, normocephalic. Pupils equal, round. Sclerae is anicteric. NECK: Supple. No JVD. No lymphadenopathy. No thyromegaly. LUNGS: Clear to auscultation. No wheezes or rhonchi. No intercostal retractions. HEART: Regular rate and rhythm. No murmur. ABDOMEN: Soft. Bowel sounds are present. No masses. No tenderness. EXTREMITIES: No pedal edema. No calf tenderness. Surgery is just change the dressing for the abscess to the left axilla. Surrounding erythema is improved. Less painful. NEUROLOGICAL: Patient is awake, alert and oriented x3. - Labs CBC & Chem 7: 04/24/17 08:29 04/23/17 11:08 Labs: Abnormal Lab Results - Last 24 Hours (Table) 04/24/17 Range/Units 08:29 WBC 11.2 H (3.8-10.6) k/uL RBC 3.18 L (4.30-5.90) m/uL Hgb 10.7 L (13.0-17.5) gm/dL Hct 31.9 L (39.0-53.0) % MCV 100.4 H (80.0-100.0) fL Neutrophils # 8.7 H (1.3-7.7) k/uL Microbiology - Last 24 Hours (Table) 04/23/17 11:08 Blood Culture - Preliminary Blood No Growth after 24 hours 04/23/17 16:30 Gram Stain - Preliminary Axilla - Left Wound Culture - Preliminary 04/23/17 16:30 Anaerobic Culture - Preliminary Axilla - Left Laboratory Results WBC 11.2 k/uL (3.8-10.6) H 04/24/17 08:29 RBC 3.18 m/uL (4.30-5.90) L 04/24/17 08:29 Hgb 10.7 gm/dL (13.0-17.5) L 04/24/17 08:29 Hct 31.9 % (39.0-53.0) L 04/24/17 08:29 MCV 100.4 fL (80.0-100.0) H 04/24/17 08:29 MCH 33.8 pg (25.0-35.0) 04/24/17 08:29 MCHC 33.7 g/dL (31.0-37.0) 04/24/17 08:29 RDW 13.1 % (11.5-15.5) 04/24/17 08:29 Plt Count 259 k/uL (150-450) 04/24/17 08:29 Neutrophils % 78 % 04/24/17 08:29 Lymphocytes % 14 % 04/24/17 08:29 Monocytes % 5 % 04/24/17 08:29 Eosinophils % 1 % 04/24/17 08: Basophils % 0 % 04/24/17 08:29 Neutrophils # 8.7 k/uL (1.3-7.7) H 04/24/17 08:29 Lymphocytes # 1.6 k/uL (1.0-4.8) 04/24/17 08: Monocytes # 0.5 k/uL (0-1.0) 04/24/17 08:29 Eosinophils # 0.1 k/uL (0-0.7) 04/24/17 08:29 Basophils # 0.0 k/uL (0-0.2) 04/24/17 08:29 Sodium 132 mmol/L (137-145) L 04/23/17 11:08 Potassium 4.5 mmol/L (3.5-5.1) 04/23/17 11:08 Chloride 96 mmol/L (98-107) L 04/23/17 11:08 Carbon Dioxide 25 mmol/L (22-30) 04/23/17 11:08 Anion Gap 11 mmol/L 04/23/17 11:08 BUN 16 mg/dL (9-20) 04/23/17 11:08 Creatinine 0.89 mg/dL (0.66-1.25) 04/23/17 11:08 Est GFR (MDRD) Af Amer >60 (>60 ml/min/1.73 sqM) 04/23/17 11:08 Est GFR (MDRD) Non-Af >60 (>60 ml/min/1.73 sqM) 04/23/17 11:08 Glucose 82 mg/dL (74-99) 04/23/17 11:08 Plasma Lactic Acid Jarrett 1.0 mmol/L (0.7-2.0) 04/23/17 11:08 Calcium 8.5 mg/dL (8.4-10.2) 04/23/17 11:08 Total Bilirubin 0.4 mg/dL (0.2-1.3) 04/23/17 11:08 AST 29 U/L (17-59) 04/23/17 11:08 ALT 41 U/L (21-72) 04/23/17 11:08 Alkaline Phosphatase 104 U/L (38-126) 04/23/17 11:08 Total Protein 6.8 g/dL (6.3-8.2) 04/23/17 11:08 Albumin 3.7 g/dL (3.5-5.0) 04/23/17 11:08 Urine Color Light Yellow 04/23/17 12:25 Urine Appearance Clear (Clear) 04/23/17 12:25 Urine pH 6.5 (5.0-8.0) 04/23/17 12:25 Ur Specific Schurz 1.009 (1.001-1.035) 04/23/17 12:25 Urine Protein Trace (Negative) H 04/23/17 12:25 Urine Glucose (UA) Negative (Negative) 04/23/17 12:25 Urine Ketones Negative (Negative) 04/23/17 12:25 Urine Blood Negative (Negative) 04/23/17 12:25 Urine Nitrite Negative (Negative) 04/23/17 12:25 Urine Bilirubin Negative (Negative) 04/23/17 12:25 Urine Urobilinogen <2.0 mg/dL (<2.0) 04/23/17 12:25 Ur Leukocyte Esterase Negative (Negative) 04/23/17 12:25 Microbiology 04/23/17 11:08 Blood Blood Culture - Preliminary No Growth after 24 hours 04/23/17 16:30 Axilla - Left Gram Stain - Preliminary 04/23/17 16:30 Axilla - Left Wound Culture - Preliminary 04/23/17 16:30 Axilla - Left Anaerobic Culture - Preliminary Assessment and Plan (1) Abscess of left axilla Narrative/Plan: Pleasant 71-year-old male who has history of hypertension and GERD without a prior history of multiple skin infections, presents to hospital with the abscess to left axillary area. It is unclear of any specific trauma or injury. Regardless he developed a significant abscess has now been incised and drained. Awaiting final culture data hopefully by the morning to come up with this plan for antibiotic therapy at home. He does have the noted sulfa ALLERGY. He is responding well to the current intravenous antibiotic therapy of vancomycin and cephazolin. Fortunately he is improving and denies other new acute complaints. We'll likely be ready for discharge home in the morning. Status: Acute
[2017-04-25] MEDS: KETOROLAC 30 MG/ML 1 ML VIAL IVP SCH ×4 (05:57→23:55)
[2017-04-25 07:33] LABS: Basophils % (A) 0 %; CH 34.9; CHCM 35.5; Eosinophils # (A) 0.1 k/uL (0-0.7); Eosinophils % (A) 1 %; HCT 31.5 % (39.0-53.0); HDW 2.45; HGB 10.9 gm/dL (13.0-17.5); Luc # (Auto) 0.14; Luc % (Auto) 2; Lymphocytes # (A) 1.4 k/uL (1.0-4.8); Lymphocytes % (A) 18 %; MCH 34.3 pg (25.0-35.0); MCHC 34.7 g/dL (31.0-37.0); MCV 98.8 fL (80.0-100.0); Mean Platelet Volume 7.8; Monocytes # (A) 0.4 k/uL (0-1.0); Monocytes % (A) 5 %; Neutrophils # (A) 5.6 k/uL (1.3-7.7); Neutrophils % (A) 74 %; RBC 3.19 m/uL (4.30-5.90); RDW 13.1 % (11.5-15.5); WBC 7.5 k/uL (3.8-10.6); WBC (Perox) 7.89
[2017-04-25] MEDS: LORATADINE 10 MG TAB PO SCH (07:48)
[2017-04-25] MEDS: ATENOLOL 25 MG TAB PO SCH ×2 (07:48→21:54)
[2017-04-25] MEDS: HEPARIN SODIUM,PORCINE 5,000 UNIT/ML 1 ML VIAL SQ SCH ×3 (07:48→23:53)
[2017-04-25] MEDS: LOSARTAN-HCTZ 50-12.5 MG 1 EACH TAB PO SCH (07:48)
[2017-04-25] MEDS: LOSARTAN 50 MG TAB PO SCH (07:48)
[2017-04-25] MEDS: ceFAZolin 2 GM in SODIUM CHLORIDE 0.9% 100 ML IVPB SCH ×3 (07:49→23:58)
[2017-04-25] MEDS: amLODIPine 5 MG TAB PO SCH (07:49)
[2017-04-25] MEDS: PANTOPRAZOLE 40 MG TABLET PO SCH (07:49)
[2017-04-25] MEDS: ASPIRIN 325 MG TAB PO SCH (07:49)
[2017-04-25 07:56] LABS: Anion Gap 11 mmol/L; Blood Urea Nitrogen 9 mg/dL (9-20); Calcium 8.2 mg/dL (8.4-10.2); Carbon Dioxide 22 mmol/L (22-30); Chloride 97 mmol/L (98-107); Glucose 94 mg/dL (74-99); Non-African American GFR(MDRD) >60 (>60 ml/min/1.73 sqM); Potassium 4.1 mmol/L (3.5-5.1); Sodium 130 mmol/L (137-145)
[2017-04-25] MEDS: VANCOMYCIN 1,500 MG in SODIUM CHLORIDE 0.9% 250 ML IVPB SCH ×2 (09:06→21:54)
[2017-04-25] MEDS: MULTIVITAMINS, THERA 1 EACH TAB PO SCH (11:20)
--- NOTE | 2017-04-25 13:03 | P.PN ---
Subjective Principal diagnosis: Left axilla abscess, severe cellulitis, hypertension, hyperlipidemia, BPH, GERD This is a 71-year-old male patient of Dr. Marcus with a past medical history of hypertension and gastroesophageal reflux disease. Patient and his are seen in the emergency center where he states he woke up last Thursday or Thursday and thought he had a bug bite under his left arm with reddness and swelling. He had a scheduled follow-up appointment for bronchitis on Thursday with Dr. Marcus and was placed on Keflex which he took but despite this, the area continued to grow in size with increasing redness. He came into [facility] emergency center today for evaluation. Axilla ultrasound reveals a 2.6 x 3.5 cm irregular area. Mass or abscess is in the differential. White count was 11.4 and he has been afebrile. Patient has been started on cefepime and vancomycin. Consults have been requested with infectious disease, Dr. Agudelo and general surgeon, Dr. Decker. Patient will be admitted to the [facility] floor. Patient is not currently established with surgeon in the area and has had previous surgeries and colonoscopy in [facility]. 04/24: Patient has been seen by and is status post I and D of the left axillary abscess with removal of 10 ML's of purulent material. Patient states he is feeling much improvement. He has had multiple dressing changes during the night due to saturation the patient states the drainage has decreased significantly this morning. White count is a same at 11.2. Temperature max is 99.9. Wound cultures are in progress. Blood cultures status received. Patient has been seen by Dr. Agudelo and antibiotics were changed to cefazolin and vancomycin. He is on Toradol for pain control. 04/25/2017: Patient is doing much better still have slight drainage from the axilla remain on the same antibiotic with vancomycin currently the cultures not finally admitted staph infection whether it's MRSA or MSSA will dictate what antibiotic patient need to go on as an outpatient. Objective - Vital Signs Vital signs: Vital Signs Temp 98.3 F 04/25/17 07:00 Pulse 78 04/25/17 07:00 Resp 16 04/25/17 07:00 BP 155/69 04/25/17 07:00 Pulse Ox 92 L 04/25/17 07:00 Intake & Output 04/24/17 04/25/17 04/25/17 18:59 06:59 18:59 Intake Total 350 900 Balance 350 900 Intake: IV 350 Vancomycin 1,500 mg In 250 Sodium Chloride 0.9% 250 ml @ 125 mls/hr IVPB Q12H CLAUDIA Rx#:[id number] ceFAZolin 2 gm In Sodium 100 Chloride 0.9% 100 ml @ 100 mls/hr IVPB Q8HR CLAUDIA Rx#:[id number] Oral 900 Other: Voiding Method Toilet # Voids 1 - Constitutional General appearance: Present: cooperative, no acute distress. Absent: average body habitus, disheveled, mild distress, morbidly obese, obese, severe distress , thin - EENT Eyes: Present: normal appearance. Absent: abnormal pupil, anicteric sclerae, disc margins sharp, edentulous, EOMI, PERRLA, fundus normal, photophobia, dentition normal, poor dentition, ptosis, scleral icterus ENT: Present: normal oropharynx. Absent: hard of hearing, hearing grossly normal, NA/AT, other, pharyngeal erythema, thrush, tonsillar exudates, tonsillar swelling Ears: bilateral: normal - Neck Neck: Present: normal ROM. Absent: lymphadenopathy, other, rigidity, stridor, thyromegaly Carotids: bilateral: upstroke normal Thyroid: bilateral: normal size - Respiratory Respiratory: bilateral: CTA, diminished - Cardiovascular Rhythm: regular Heart sounds: normal: S1, S2 Abnormal Heart Sounds: Present: systolic murmur - Gastrointestinal General gastrointestinal: Present: normal bowel sounds, soft. Absent: absent bowel sounds, decreased bowel sounds, distended, hepatomegaly, hyperactive bowel sounds, organomegaly, rigid, scaphoid, splenomegaly, tenderness, umbilical hernia, ventral hernia - Integumentary Integumentary Comment(s): Left axilla still have slight drainage tube with slight induration area draining much less and with that has a last few days. Integumentary: Present: cellulitis, normal, pale, rash. Absent: calor, cyanotic , decreased turgor, flushed, jaundiced, normal turgor, ulcer - Neurologic Neurologic: Present: CNII-XII intact - Musculoskeletal Musculoskeletal: Present: gait normal, generalized weakness, strength equal bilaterally - Psychiatric Psychiatric: Present: A&O x's 3, appropriate affect - Labs CBC & Chem 7: 04/25/17 07:23 04/25/17 07:23 Labs: Abnormal Lab Results - Last 24 Hours (Table) 04/25/17 04/25/17 Range/Units 07:23 07:23 RBC 3.19 L (4.30-5.90) m/uL Hgb 10.9 L (13.0-17.5) gm/dL Hct 31.5 L (39.0-53.0) % Sodium 130 L (137-145) mmol/L Chloride 97 L (98-107) mmol/L Calcium 8.2 L (8.4-10.2) mg/dL Microbiology - Last 24 Hours (Table) 04/23/17 16:30 Gram Stain - Preliminary Axilla - Left Wound Culture - Preliminary Presumptive Staph aureus 04/23/17 11:08 Blood Culture - Preliminary Blood No Growth after 24 hours Assessment and Plan Plan: 1. Left axilla abscess failed outpatient treatment. Patient is currently on vancomycin. Dr. Agudelo seen patient in consultation continue current management awaiting for the final culture result. 2. Hypertension. Continue atenolol 25 mg twice daily, Norvasc 5 mg daily, losartan hydrochlorothiazide 1 daily. 3. Gastrointestinal prophylaxis and gastroesophageal reflux disease. Continue omeprazole. 4. History of regular alcohol intake, monitor for DTs. No sign and symptoms currently. 5 BPH: Watch for any urinary retention. Discharge: Patient might be discharged home tomorrow.
[2017-04-26] MEDS: KETOROLAC 30 MG/ML 1 ML VIAL IVP SCH ×4 (05:23→23:31)
[2017-04-26] MEDS: ceFAZolin 2 GM in SODIUM CHLORIDE 0.9% 100 ML IVPB SCH ×3 (07:40→23:59)
[2017-04-26] MEDS: PANTOPRAZOLE 40 MG TABLET PO SCH (07:41)
[2017-04-26] MEDS: HEPARIN SODIUM,PORCINE 5,000 UNIT/ML 1 ML VIAL SQ SCH ×3 (07:41→23:32)
[2017-04-26] MEDS: ATENOLOL 25 MG TAB PO SCH ×2 (07:42→21:11)
[2017-04-26] MEDS: amLODIPine 5 MG TAB PO SCH (07:42)
[2017-04-26] MEDS: LOSARTAN-HCTZ 50-12.5 MG 1 EACH TAB PO SCH (07:42)
[2017-04-26] MEDS: LORATADINE 10 MG TAB PO SCH (07:42)
[2017-04-26] MEDS: ASPIRIN 325 MG TAB PO SCH (07:42)
[2017-04-26] MEDS: LOSARTAN 50 MG TAB PO SCH (07:42)
[2017-04-26] MEDS: VANCOMYCIN 1,500 MG in SODIUM CHLORIDE 0.9% 250 ML IVPB SCH ×2 (09:12→21:11)
--- NOTE | 2017-04-26 10:07 | P.PN ---
Subjective Principal diagnosis: Left axilla abscess, severe cellulitis, hypertension, hyperlipidemia, BPH, GERD , MRSA. This is a 71-year-old male patient of Dr. Marcus with a past medical history of hypertension and gastroesophageal reflux disease. Patient and his are seen in the emergency center where he states he woke up last Thursday or Thursday and thought he had a bug bite under his left arm with reddness and swelling. He had a scheduled follow-up appointment for bronchitis on Thursday with Dr. Marcus and was placed on Keflex which he took but despite this, the area continued to grow in size with increasing redness. He came into [facility] emergency center today for evaluation. Axilla ultrasound reveals a 2.6 x 3.5 cm irregular area. Mass or abscess is in the differential. White count was 11.4 and he has been afebrile. Patient has been started on cefepime and vancomycin. Consults have been requested with inf ectious disease, Dr. Agudelo and general surgeon, Dr. Decker. Patient will be admitted to the [facility] floor. Patient is not currently established with surgeon in the area and has had previous surgeries and colonoscopy in [facility]. 04/24: Patient has been seen by and is status post I and D of the left axillary abscess with removal of 10 ML's of purulent material. Patient states he is feeling much improvement. He has had multiple dressing changes during the night due to saturation the patient states the drainage has decreased significantly this morning. White count is a same at 11.2. Temperature max is 99.9. Wound cultures are in progress. Blood cultures status received. Patient has been seen by Dr. Agudelo and antibiotics were changed to cefazolin and vancomycin. He is on Toradol for pain control. 04/25/2017: Patient is doing much better still have slight drainage from the axilla remain on the same antibiotic with vancomycin currently the cultures not finally admitted staph infection whether it's MRSA or MSSA will dictate what antibiotic patient need to go on as an outpatient. 04/26/2017: Patient is doing much better his final culture came as an MRSA, will continue patient on IV vancomycin, with Dr. Agudelo most likely will require an IV antibiotic for the next 2 weeks PICC line might be order and scheduled for tomorrow after Dr. Agudelo seen him and make decision. Objective - Vital Signs Vital signs: Vital Signs Temp 99.5 F 04/26/17 06:00 Pulse 79 04/26/17 06:00 Resp 20 04/26/17 06:00 BP 155/75 04/26/17 06:00 Pulse Ox 93 L 04/26/17 06:00 Intake & Output 04/25/17 04/26/17 04/26/17 18:59 06:59 18:59 Intake Total 1050 775 Balance 1050 775 Intake: IV 450 Vancomycin 1,500 mg In 250 Sodium Chloride 0.9% 250 ml @ 125 mls/hr IVPB Q12H CLAUDIA Rx#:[id number] ceFAZolin 2 gm In Sodium 200 Chloride 0.9% 100 ml @ 100 mls/hr IVPB Q8HR CLAUDIA Rx#:[id number] Oral 600 775 Other: # Voids 3 2 - Constitutional General appearance: Present: cooperative, no acute distress. Absent: average body habitus, disheveled, mild distress, morbidly obese, obese, severe distress , thin - EENT Eyes: Present: normal appearance. Absent: abnormal pupil, anicteric sclerae, disc margins sharp, edentulous, EOMI, PERRLA, fundus normal, photophobia, dentition normal, poor dentition, ptosis, scleral icterus ENT: Present: normal oropharynx. Absent: hard of hearing, hearing grossly normal, NA/AT, other, pharyngeal erythema, thrush, tonsillar exudates, tonsillar swelling Ears: bilateral: normal - Neck Neck: Present: normal ROM. Absent: lymphadenopathy, other, rigidity, stridor, thyromegaly Carotids: bilateral: upstroke normal Thyroid: bilateral: normal size - Respiratory Respiratory: bilateral: CTA, diminished - Cardiovascular Rhythm: regular Heart sounds: normal: S1, S2 - Gastrointestinal General gastrointestinal: Present: normal bowel sounds, soft. Absent: absent bowel sounds, decreased bowel sounds, distended, hepatomegaly, hyperactive bowel sounds, organomegaly, rigid, scaphoid, splenomegaly, tenderness, umbilical hernia, ventral hernia - Integumentary Integumentary Comment(s): Incision in the axilla in the left side looks better she is having less drainage less induration and harsh tissue the abscess has improved significantly. Integumentary: Present: cellulitis, normal, pale, rash. Absent: calor, cyanotic , decreased turgor, flushed, jaundiced, normal turgor, ulcer - Neurologic Neurologic: Present: CNII-XII intact - Musculoskeletal Musculoskeletal: Present: gait normal, strength equal bilaterally. Absent: generalized weakness, right sided weakness, left sided weakness - Psychiatric Psychiatric: Present: A&O x's 3, appropriate affect. Absent: intact judgment & insight - Labs CBC & Chem 7: 04/25/17 07:23 04/25/17 07:23 Labs: Microbiology - Last 24 Hours (Table) 04/23/17 16:30 Anaerobic Culture - Preliminary Axilla - Left 04/23/17 16:30 Gram Stain - Final Axilla - Left Wound Culture - Final Methicillin resist S. aureus 04/23/17 11:08 Blood Culture - Preliminary Blood No Growth after 48 hours Assessment and Plan Plan: 1. Left axilla abscess failed outpatient treatment. Patient is currently on vancomycin. Final culture was MRSA, Dr. Agudelo and make decision most likely keep patient on IV antibiotic for next 2 weeks. 2. Hypertension. Continue atenolol 25 mg twice daily, Norvasc 5 mg daily, losartan hydrochlorothiazide 1 daily. 3. Gastrointestinal prophylaxis and gastroesophageal reflux disease. Continue omeprazole. 4. History of regular alcohol intake, monitor for DTs. No sign and symptoms currently. 5 BPH: Watch for any urinary retention. Discharge: Patient might be discharged home tomorrow, PICC line and arrangement for IV antibiotic might be needed for the next 2 weeks..
[2017-04-26] MEDS: MULTIVITAMINS, THERA 1 EACH TAB PO SCH (12:12)
[2017-04-27] MEDS: KETOROLAC 30 MG/ML 1 ML VIAL IVP SCH ×2 (05:50→11:39)
[2017-04-27 07:30] VITALS: BP 141/74; PULSE 80; RESP 16; TEMP 98.1
[2017-04-27] MEDS: ceFAZolin 2 GM in SODIUM CHLORIDE 0.9% 100 ML IVPB SCH (07:40)
[2017-04-27] MEDS: PANTOPRAZOLE 40 MG TABLET PO SCH (07:40)
[2017-04-27] MEDS: HEPARIN SODIUM,PORCINE 5,000 UNIT/ML 1 ML VIAL SQ SCH (07:40)
[2017-04-27] MEDS: amLODIPine 5 MG TAB PO SCH (07:41)
[2017-04-27] MEDS: LORATADINE 10 MG TAB PO SCH (07:41)
[2017-04-27] MEDS: LOSARTAN 50 MG TAB PO SCH (07:41)
[2017-04-27] MEDS: LOSARTAN-HCTZ 50-12.5 MG 1 EACH TAB PO SCH (07:41)
[2017-04-27] MEDS: ATENOLOL 25 MG TAB PO SCH (07:41)
[2017-04-27] MEDS: ASPIRIN 325 MG TAB PO SCH (07:41)
[2017-04-27] MEDS: VANCOMYCIN 1,500 MG in SODIUM CHLORIDE 0.9% 250 ML IVPB SCH (09:02)
[2017-04-27] MEDS: MULTIVITAMINS, THERA 1 EACH TAB PO SCH (11:39)
--- NOTE | 2017-04-28 13:34 | P.DS ---
Providers Date of admission: 04/23/17 12:23 Expected date of discharge: 04/27/17 Attending physician: Aden Louis Consults: 04/23/17 12:24 Consult Physician Routine Consulting Provider: Aden Agudelo Consult Reason/Comments: Failed out-patient cellulitis Do you want consulting provider notified?: Yes 04/23/17 12:51 Consult Physician Routine Consulting Provider: Sara Decker Consult Reason/Comments: abscess Do you want consulting provider notified?: Yes Primary care physician: Jameson Marcus [facility] Course: This is a 71-year-old male patient of Dr. Marcus with a past medical history of hypertension and gastroesophageal reflux disease. Patient and his are seen in the emergency center where he states he woke up last Thursday or Thursday and thought he had a bug bite under his left arm with reddness and swelling. He had a scheduled follow-up appointment for bronchitis on Thursday with Dr. Marcus and was placed on Keflex which he took but despite this, the area continued to grow in size with increasing redness. He came into [facility] emergency center today for evaluation. Axilla ultrasound reveals a 2.6 x 3.5 cm irregular area. Mass or abscess is in the differential. White count was 11.4 and he has been afebrile. Patient has been started on cefepime and vancomycin. Consults have been requested with inf ectious disease, Dr. Agudelo and general surgeon, Dr. Decker. Patient will be admitted to the [facility] floor. Patient is not currently established with surgeon in the area and has had previous surgeries and colonoscopy in [facility]. 04/24: Patient has been seen by and is status post I and D of the left axillary abscess with removal of 10 ML's of purulent material. Patient states he is feeling much improvement. He has had multiple dressing changes during the night due to saturation the patient states the drainage has decreased significantly this morning. White count is a same at 11.2. Temperature max is 99.9. Wound cultures are in progress. Blood cultures status received. Patient has been seen by Dr. Agudelo and antibiotics were changed to cefazolin and vancomycin. He is on Toradol for pain control. 04/25/2017: Patient is doing much better still have slight drainage from the axilla remain on the same antibiotic with vancomycin currently the cultures not finally admitted staph infection whether it's MRSA or MSSA will dictate what antibiotic patient need to go on as an outpatient. 04/26/2017: Patient is doing much better his final culture came as an MRSA, will continue patient on IV vancomycin, with Dr. Agudelo most likely will require an IV antibiotic for the next 2 weeks PICC line might be order and scheduled for tomorrow after Dr. Agudelo seen him and make decision. 04/27: Wound culture revealed MRSA. Dr. Agudelo as recommended doxycycline. Patient is anxious to go home today. Patient will be discharged home today in stable condition. Discharge diagnoses: 1. Left axilla abscess failed outpatient treatment. 2. Hypertension. 3. Gastroesophageal reflux disease. 4. History of regular alcohol intake 5. BPH Discharge plan: Return home Impression and plan of care have been directed as dictated by the signing physician. Miranda Jasso nurse practitioner acting as scribe for signing physician. Cc: Dr. Jameson Marcus Patient Condition at Discharge: Good Plan - Discharge Summary New Discharge Prescriptions: New Doxycycline Hyclate 100 mg PO BID #20 tab Multivitamins, Thera [Multivitamin (formulary)] 1 each PO DAILY@1200 tab Continue Loratadine [Claritin] 10 mg PO DAILY Atenolol 25 mg PO BID Aspirin EC [Ecotrin] 325 mg PO DAILY amLODIPine [Norvasc] 5 mg PO DAILY Ibuprofen [Motrin] 800 mg PO TID PRN PRN Reason: Pain Omeprazole 20 mg PO DAILY Losartan/Hydrochlorothiazide [Losartan-Hctz 100-12.5 mg Tab] 1 tab PO DAILY Discontinued Cephalexin [Keflex] 500 mg PO Q12HR Discharge Medication List Aspirin EC [Ecotrin] 325 mg PO DAILY 04/23/17 [History] Atenolol 25 mg PO BID 04/23/17 [History] Ibuprofen [Motrin] 800 mg PO TID PRN 04/23/17 [History] Loratadine [Claritin] 10 mg PO DAILY 04/23/17 [History] Losartan/Hydrochlorothiazide [Losartan-Hctz 100-12.5 mg Tab] 1 tab PO DAILY [History] Omeprazole 20 mg PO DAILY 04/23/17 [History] amLODIPine [Norvasc] 5 mg PO DAILY 04/23/17 [History] Doxycycline Hyclate 100 mg PO BID #20 tab 04/27/17 [Rx] Multivitamins, Thera [Multivitamin (formulary)] 1 each PO DAILY@1200 tab [Rx] Follow up Appointment(s)/Referral(s): Aden Agudelo MD [STAFF PHYSICIAN] - 05/06/17 2:00 pm ([facility] with Dr. Bismark Carrington - 3rd floor) Jameson Marcus DO [Primary Care Provider] - 1 Week (office will call you with appointment date and time) Sara Decker DO [Doctor of Osteopathic Medicine] - 05/06/17 11:00 am Patient Instructions/Handouts: Cellulitis (DC), Abscess (GEN) Activity/Diet/Wound Care/Special Instructions: Shower twice daily. No soap directly to wound. Cover with dry gauze after shower Discharge Disposition: HOME SELF-CARE
== END 2017-04-27 14:37 | disposition home or self-care (01) | DRG 603 ==
LOC: EC 09:18 → 4MS4W 12:23
PROVIDERS: ADMIT Internal Medicine Geriatric Medicine; ATTEND Internal Medicine Geriatric Medicine
PROC: 0H95XZX Drainage of Chest Skin, External Approach, Diagnostic (ICD-10-PCS; principal; 2017-04-23)
DX: L02.412 Cutaneous abscess of left axilla (principal); B95.62 Methicillin resistant Staphylococcus aureus infection as the cause of diseases classified elsewhere; R50.81 Fever presenting with conditions classified elsewhere; I10 Essential (primary) hypertension; L03.112 Cellulitis of left axilla; R53.1 Weakness; N40.0 Benign prostatic hyperplasia without lower urinary tract symptoms; E78.5 Hyperlipidemia, unspecified; J30.1 Allergic rhinitis due to pollen; K21.9 Gastro-esophageal reflux disease without esophagitis; Z82.0 Family history of epilepsy and other diseases of the nervous system; Z79.899 Other long term (current) drug therapy; Z88.2 Allergy status to sulfonamides; Z87.891 Personal history of nicotine dependence; Z98.42 Cataract extraction status, left eye; Z98.41 Cataract extraction status, right eye; Z86.19 Personal history of other infectious and parasitic diseases; Z86.010 Personal history of colon polyps; Z72.89 Other problems related to lifestyle; Z83.2 Family history of diseases of the blood and blood-forming organs and certain disorders involving the immune mechanism; Z81.3 Family history of other psychoactive substance abuse and dependence; Z82.79 Family history of other congenital malformations, deformations and chromosomal abnormalities; Z87.09 Personal history of other diseases of the respiratory system; Z79.82 Long term (current) use of aspirin; Z79.1 Long term (current) use of non-steroidal anti-inflammatories (NSAID)
CPT/HCPCS: 36415; 80048; 80053; 80202; 81003; 83605; 84134; 85025; 87040; 87070; 87075; 87077; 87186; 87205; 96365; 96368; 99284

== ENCOUNTER → 2021-12-23 | Outpatient (CLI) | payer MEDICARE | LOC: PNWHC3 11:11 | PROVIDERS: ATTEND Specialist | DX: M47.816 Spondylosis without myelopathy or radiculopathy, lumbar region (principal) | CPT/HCPCS: 99211 ==

== ENCOUNTER 2022-01-28 07:53 | Day surgery (SDC) | payer MEDICARE ==
[~2022-01-28 07:53] MED LIST: LACTATED RINGERS 1,000 ML IV SCH; LIDOCAINE 1% (10MG/ML) FOR IV START INTRADERMA PRN
[2022-01-28 08:28] VITALS: TEMP 98.3
[2022-01-28] MEDS ORDERED: fentaNYL (PF) 50 MCG/ML 2 ML AMP ONE (09:08)
[2022-01-28] MEDS ORDERED: IOPAMIDOL M200 10 ML VIAL ONE (09:08)
[2022-01-28] MEDS ORDERED: methylPREDNISolone ACETATE 40 MG/ML 1 ML VIAL ONE (09:08)
[2022-01-28] MEDS ORDERED: MIDAZOLAM 2 MG/2 ML VIAL ONE (09:08)
--- NOTE | 2022-01-28 09:27 | P.PCN ---
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 PROCEDURE 1. Lumbar epidural steroid injection under fluoroscopic guidance at the L4-5 level. (Fluoroscopy imaging was available in radiology department) 2. Lumbar epidurogram. ANESTHESIA: Local with 1% lidocaine 3 ml and , moderate sedation with intravenous Versed 1 mg ,and fentanyle 50 Mcg EBL: Minimal PROCEDURE INDICATION: The patient with low back pain and radiculitis symptoms unresponsive to conservative treatment. Fluoroscopy was used to optimize visualization of the needle placement and to maximize safety. PROCEDURE DESCRIPTION / TECHNIQUE: The patient was seen and identified in the preoperative area. Risks, benefits, complications including but not limited to infections ,bleeding ,allergic reaction to the medications ,nerve damage and not complete pain releife , and alternatives were discussed with the patient. The patient agreed to proceed with the procedure and signed the consent. IV was started, and vital signs were stable. Patient was taken to the OR and time out was completed. The patient was placed in the prone position on procedure table and a pillow was placed under the abdomen to reduce lumbar lordosis. The lumbosacral area was prepped and draped in the usual sterile fashion.ere closely monitored during the procedure. Cons cious sedation was used during the procedure to decrease patients anxiety. Vital signs was monitered during the entire procedure. Using anterior-posterior fluoroscopy, the L4-5 interlaminar space was identified and the skin over this site was marked and then infiltrated with 1% lidocaine subcutaneously. Subsequently, a 18-gauge Tuohy epidural needle was inserted and advanced toward the epidural space using the ``Loss of resistance technique and guided by AP and lateral fluoroscopy. The correct needle position in the epidural space was verified with the injection of 2 mL of the water soluble contrast dye Isovue 200 contrast and observing an excellent epidurogram with the epidural spread of the dye, after negative aspiration for blood and CSF and in the absence of paresthesias. Again after negative aspiration, a 6 ml mixture containing 60 mg of Depo-medrol , and 2 ml of preservative free Normal Saline, and 2 ml of preservative free lidocaine 1% solution was injected and a washout of epidurogram was seen. Needle was withdrawn intact, skin was cleansed, and bandages were applied. COMPLICATIONS: None DISPOSITION / PLANS: The patient was placed in a supine position and transferred to the recovery area in a stable condition for observation. There was no evidence of lower extremity motor or sensory deficit after the procedure. Patient was discharged from the recovery room after meeting discharge criteria. Home discharge instructions were given to the patient by the staff. The patient was reexamined prior to discharge. The patient will schedule a follow up in the clinic in 2-4 weeks.
[2022-01-28] MEDS ORDERED: IV FLUID CONTINUATION 1,000 ML IV ONE (09:29)
[2022-01-28 09:32] VITALS: RESP 16
[2022-01-28 09:53] VITALS: BP 115/57; PULSE 49
--- NOTE | 2022-01-28 10:35 | FL ---
Fluoroscopy HISTORY: Pain 7 seconds fluoroscopy time supplied to the referring clinician. 1 intraoperative C-arm images docume nt the procedure. See dictated report from anesthesia.
== END 2022-01-28 10:01 | disposition home or self-care (01) ==
LOC: ORPAIN 07:53
PROVIDERS: ATTEND Specialist
DX: M51.36 Other intervertebral disc degeneration, lumbar region (principal)
CPT/HCPCS: 62323; J2250; J1030; J1040; J3010; Q9966; 99152

== ENCOUNTER → 2022-02-20 | Outpatient (CLI) | payer MEDICARE ==
[2022-02-20 10:03] VITALS: BP 165/72; PULSE 48; RESP 18
--- NOTE | 2022-02-20 10:16 | P.PAINPG ---
PQRS Measure Charge Sheet Comment: A 76 yr old male with at side with a history of severe and chronic low back pain secondary to lumbar degenerative disc diseases and lumbar spondylosis with facet arthropathy presents today for evaluation s/p LESI L4-L5. Pt states he experiences 50% pain relief s/p procedure when performing activities. Pain level is 2/10 when inactive and escalates as high as 10/10 in intensity, dull, achy & sore in the lower aspects of his lumbar spine which shoots towards BL glutes and to BLEs. Pain is provoked by bending, lifting and twisting. Pain is alleviated with PT integrated with massage in 2019, heat, medications (Motrin 800mg from Dr Stevens), home based stretching regimen, repositioning and rest. Pt has completed RFA of BL L4-L5, L5-S1 at least 4 times and has found 70- 90% pain relief for an average of 8 months when performed by Dr Raphael at [facility]. He had essentially no relief the one time he underwent RFA at [facility] and he refuses to go back to that facility. Interventional pain procedures completed include LESI L4-L5 Patient is currently on Motrin 800mg Patient denies any side effects of the medication(s), denies excessive drowsiness or sleepiness, denies suicidal ideation and reports that the current pain medication is helping to control the pain and improve activities of daily living. Patient denies any motor or sensory deficits. Patient denies any fever or night sweats, denies any change in the bowel movements or urination. Physical Examination: -Constitutional: Cooperative. Not in acute distress . - Neurologic: Cranial nerve II to XII intact. No focal neurological deficits. - Psychatric: Alert & oriented x 3. Matching mood & appropriate affect. Judgment and insight intact. - Musculoskeletal: Cervical spine: Muscle bulk/ tone/ strength in the bilateral upper extremities normal Vertebral body tenderness to palpation over Spurling test positive Distraction test positive Facet loading test positive Thoracic spine Muscle bulk / tone/ strength in the bilateral paraspinal muscles normal Vertebral body tender to palpation over Facet loading test positive Lumbar spine: Motor bulk/ tone/ strength lower extremities , thigh and legs : 5/5 Deep tendon reflexes : Normal Knee Jerk. Normal Ankle Jerk . Vertebral body tenderness to palpation over Lumbar Facet Loading Test positive over BL L4-L5, L5-S1 w jump reflex and accompanying paraspinal TTP Straight Leg Raise: positive at 30 degrees right side/ left side Gaenslen's Test positive Sacral spine : Severe tenderness over the Sacroiliac joint: right side / left side Range of motion: Flexion of the lumbar spine <60 degrees Range of motion: Extension of the lumbar spine <20 degrees Gaenslen's Test positive Marko's Test positive Dyana test: positive right side / left side Thigh Thrust Test Sacral Thrust Test Assessment and plan: Chronic low back pain secondary to lumbar degenerative disc disease , lumbar spondylosis with facet arthropathy without myelopathy Recommendation of BL RFA L4-L5, L5-S1. Patient has exhibited sufficient and substantial pain relief with multiple prior RFAs completed by Dr. Raphael while at [facility]. Risks, benefits of procedure discussed and pt verbalized understanding. Denies anticoagulant use or medical history of diabetes. All patient questions answered MAPS reviewed and it was appropriate. I have spent less than 30 minutes on patient care today. Dr Rosales was available by phone for the evaluation of this patient. The time was used to review the medical records including relevant urine studies and Prescription history (MAPs), review of the available imaging, evaluation and examination of the patient, coordination of care with the medical staff and if applicable referring physicians, as well as creation of the medical record - Pain Location Lower Back Non-Pharmacological Interventions: Heat, Home Exercise, Massage, Physical Therapy, Position/Reposition, Sitting, Stretching Pharmacological Interventions: Epidural, PRN Medication PQRS Narrative: Smoking Status Former smoker Hx Alcohol Use (MH) No Home Medications: Ambulatory Orders Ibuprofen [Motrin] 800 mg PO TID PRN 04/23/17 Loratadine [Claritin] 10 mg PO DAILY 04/23/17 Losartan/Hydrochlorothiazide [Losartan-Hctz 100-12.5 mg Tab] 1 tab PO QAM 04/23/17 Omeprazole 20 mg PO QAM 04/23/17 amLODIPine [Norvasc] 5 mg PO QAM 04/23/17 atenoloL 25 mg PO BID 04/23/17 Multivitamins, Thera [Multivitamin (formulary)] 1 each PO DAILY@1200 tab 04/27/17 Controlled Substance Measures - Controlled Substance Measures Is patient prescribed a controlled substance at discharge?: No
== END ==
LOC: PNWHC3 08:56
PROVIDERS: ATTEND Specialist
DX: M47.816 Spondylosis without myelopathy or radiculopathy, lumbar region (principal); M51.36 Other intervertebral disc degeneration, lumbar region; G89.29 Other chronic pain; Z88.2 Allergy status to sulfonamides; Z87.891 Personal history of nicotine dependence
CPT/HCPCS: 99211

== ENCOUNTER 2022-03-28 08:58 | Day surgery (SDC) | payer MEDICARE ==
[2022-03-28 10:11] VITALS: TEMP 98.2
[2022-03-28] MEDS ORDERED: ROPIVACAINE 5MG/ML 20ML VIAL ONE (10:22)
[2022-03-28] MEDS ORDERED: methylPREDNISolone ACETATE 40 MG/ML 1 ML VIAL ONE (10:22)
[2022-03-28] MEDS ORDERED: MIDAZOLAM 2 MG/2 ML VIAL ONE (10:22)
[2022-03-28] MEDS ORDERED: fentaNYL (PF) 50 MCG/ML 2 ML AMP ONE (10:22)
--- NOTE | 2022-03-28 10:57 | P.PCN ---
Date of Procedure: 03/28/22 Procedure(s) Performed: PREOPERATIVE DIAGNOSIS: 1-Lumbar Spondylosis with Facet Arthropathy without myelopathy. 2- Lumber degenerative disc disease. POSTOPERATIVE DIAGNOSIS: 1- Lumbar Spondylosis with Facet Arthropathy without myelopathy. 2- Lumber degenerative disc disease. PROCEDURES : Bilateral Radiofrequency thermocoagulation, L3 , L4 , and L5 medial branch, with fluoroscopic guidance (fluoroscopy images available in the radiology department) ( to denervate the facet joint at bilateral L4-5 ,and L5-S1 levels ). ANESTHESIA: Monitored anesthesia care as per anesthesia department. EBL: Minimal PROCEDURE INDICATION: The patient with low back pain secondary to lumbar facet arthropathy who had more than 50% relief of her pain with previous diagnostic lumbar medial branch block with bupivacaine. PROCEDURE DESCRIPTION / TECHNIQUE: The patient was seen and identified in the preoperative area. Risks, benefits, complications, including but not limited to risk of infection ,bleeding , allergic reactions to the medications and no complete pain releife , and alternatives were discussed with the patient, the patient agreed to proceed with the procedure and signed the consent. IV was started. Vital signs remained stable throughout the procedure. Patient was taken to the OR and time out was completed. The patient was placed in the prone position on the procedure table. The lumber area was prepped and draped in the usual sterile fashion. . Vital signs were closely monitored during the procedure .IV sedation was used during the procedure to decrease patients anxiety. Using AP and then oblique fluoroscopy, the ``eye of the Paulo dog anali esponding to the connection between the superior and transverse articular processes of right L3, L4, and L5 were identified, marked, and localized with 1% lidocaine. Subsequently, a 18 -al radiofrequency cannula with a 10- mm active tip was advanced guided by fluoroscopy to each of the``eyes of the Paulo dog at right L3, L4, and L5. Each site then underwent sensory testing at 50 Hz and 0 to 1 volt and motor testing at 2.5 Hz and 0 to 3 volt with local stimulation, but no radicular symptoms down the legs. Thereafter each sites underwent radiofrequency thermocoagulation at 80 degrees celsius for 90 seconds after injecting 0.5 ml of PF Ropivacaine 1ml, then after the thermocoagulation done , 1 ml of the block solution containing Depo-Medrol 20 mg and 3 ml of Ropivacaine 0.5% was injected at the right L3 , L4 , and L5 , levels after negative aspiration of CSF and blood and with no paresthesias. Cannulas were retracted while injecting lidocaine 1% until the needle is out. The same procedure was repeated at the level of Left L3, L4, and L5 levels. At the end of the procedure, the skin was cleansed and bandages were applied. COMPLICATIONS: No acute complications. DISPOSITION / PLANS: The patient was placed in a supine position and transferred to the recovery area in a stable condition for observation and was discharged from the recovery room after meeting discharge criteria. Home discharge instructions given to the patient by the staff. The patient was reexamined prior to discharge. The patient will schedule a follow up in the clinic in 2-4 weeks.
[2022-03-28] MEDS ORDERED: IV FLUID CONTINUATION 1,000 ML IV ONE (11:10)
[2022-03-28 11:38] VITALS: BP 141/60; PULSE 60; RESP 20
--- NOTE | 2022-03-28 12:44 | FL ---
Fluoroscopy HISTORY: Pain 21 seconds fluoroscopy time supplied to the referring clinician. 6 intraoperative C-arm images docum ent the procedure. See dictated report from anesthesia.
== END 2022-03-28 11:38 | disposition home or self-care (01) ==
LOC: ORPAIN 08:58
PROVIDERS: ATTEND Specialist
DX: M47.816 Spondylosis without myelopathy or radiculopathy, lumbar region (principal); M51.36 Other intervertebral disc degeneration, lumbar region; I10 Essential (primary) hypertension; Z87.891 Personal history of nicotine dependence; K21.9 Gastro-esophageal reflux disease without esophagitis; Z98.890 Other specified postprocedural states; Z79.1 Long term (current) use of non-steroidal anti-inflammatories (NSAID); Z79.899 Other long term (current) drug therapy; Z88.2 Allergy status to sulfonamides
CPT/HCPCS: 64635; 64636; J2250; J1030; J3010; J2795

== ENCOUNTER → 2022-07-16 | Outpatient (CLI) | payer MEDICARE ==
[2022-07-16 09:08] VITALS: BP 157/68; PULSE 48; RESP 18; TEMP 97.7
--- NOTE | 2022-07-16 14:40 | P.PAINPG ---
PQRS Measure Charge Sheet Comment: A 76 yr old male with a history of severe and chronic low back pain secondary to lumbar DDD and spondylosis with facet arthropathy without myelopathy presents today for evaluation s/p BL RFA L3-L5. Pt states he experienced 80% pain relief s/p procedure. Pain level is currently at 6/10 in intensity, constant, localized in the R lower lumbar spine, dull/ achy in character w shooting towards the RLE. Pain is provoked by bending and over activity. Pain is alleviated with PT integrated w massage in 2019, daily exercise regimen, meds (Motrin), injections, repositioning and rest. Interventional pain procedures completed include BL RFA L3-L5 Patient is currently on Motrin 800mg Patient denies any side effects of the medication(s), denies excessive drowsiness or sleepiness, denies suicidal ideation and reports that the current pain medication is helping to control the pain and improve activities of daily living. Patient denies any motor or sensory deficits. Patient denies any fever or night sweats, denies any change in the bowel movements or urination. Physical Examination: -Constitutional: Cooperative. Not in acute distress . - Neurologic: Cranial nerve II to XII intact. No focal neurological deficits. - Psychatric: Alert & oriented x 3. Matching mood & appropriate affect. Judgment and insight intact. - Musculoskeletal: Cervical spine: Muscle bulk/ tone/ strength in the bilateral upper extremities normal Vertebral body tenderness to palpation over Spurling test positive Distraction test positive Facet loading test positive Thoracic spine Muscle bulk / tone/ strength in the bilateral paraspinal muscles normal Vertebral body tender to palpation over Facet loading test positive Lumbar spine: Motor bulk/ tone/ strength lower extremities , thigh and legs : 5/5 Deep tendon reflexes : Normal Knee Jerk. Normal Ankle Jerk . Vertebral body tenderness to palpation over L4 Lumbar Facet Loading Test positive Straight Leg Raise: positive at 30 degrees right side/ left side Gaenslen's Test positive Sacral spine : Severe tenderness over the Sacroiliac joint: right side / left side Range of motion: Flexion of the lumbar spine <60 degrees Range of motion: Extension of the lumbar spine <20 degrees Gaenslen's Test positive Dyana test: positive right side / left side Thigh Thrust Test Sacral Thrust Test Assessment and plan: Chronic low back pain secondary to lumbar degenerative disc disease, spondylosis with facet arthropathy without myelopathy Recommendation of RIVAS L4-L5. Maybe a series of injections, up to 3 within a six-month timeframe, for optimal pain relief. Risks, benefits of procedure discussed and pt verbalized understanding. Denies anticoagulant use or medical history of diabetes. All patient questions answered I have spent less than 30 minutes on patient care today. Dr Rosales was available by phone for the evaluation of this patient. The time was used to review the medical records including relevant urine studies and Prescription history (MAPs), review of the available imaging, evaluation and examination of the patient, coordination of care with the medical staff and if applicable referring physicians, as well as creation of the medical record - Pain Location Right Lower Back Non-Pharmacological Interventions: Heat, Home Exercise, Massage, Physical Therapy, Stretching Pharmacological Interventions: Block, Epidural, PRN Medication PQRS Narrative: Smoking Status Former smoker Hx Alcohol Use (MH) No Home Medications: Ambulatory Orders Ibuprofen [Motrin] 800 mg PO TID PRN 04/23/17 Loratadine [Claritin] 10 mg PO DAILY 04/23/17 Losartan/Hydrochlorothiazide [Losartan-Hctz 100-12.5 mg Tab] 1 tab PO QAM 04/23/17 Omeprazole 20 mg PO QAM 04/23/17 amLODIPine [Norvasc] 5 mg PO QAM 04/23/17 atenoloL 25 mg PO BID 04/23/17 Multivitamins, Thera [Multivitamin (formulary)] 1 each PO DAILY 03/26/22 Unk Ocuvit 1 tab PO DAILY 03/26/22 Controlled Substance Measures - Controlled Substance Measures Is patient prescribed a controlled substance at discharge?: No
== END ==
LOC: PNWHC3 08:31
PROVIDERS: ATTEND Specialist
DX: M47.816 Spondylosis without myelopathy or radiculopathy, lumbar region (principal); M51.36 Other intervertebral disc degeneration, lumbar region; G89.29 Other chronic pain; Z88.2 Allergy status to sulfonamides; Z87.891 Personal history of nicotine dependence
CPT/HCPCS: 99211

== ENCOUNTER → 2022-09-08 | Outpatient (CLI) | payer MEDICARE ==
[2022-09-08 10:05] VITALS: BP 177/72; PULSE 54; RESP 18; TEMP 98.1
--- NOTE | 2022-09-08 14:46 | P.PAINPG ---
PQRS Measure Charge Sheet Comment: A 77 yr old male w at side with a history of severe and chronic low back pain secondary to lumbar DDD and spondylosis with facet arthropathy without myelopathy presents today for LBP. Pt underwent BL RFA L3-L5 in January 2022 of which he experienced 80% pain relief x 5 mo s/p procedure. Pain level is curr ently at 7 /10 in intensity, constant, localized in the lumbar spine, tight pressure in character w shooting towards the BL knees. Pain is provoked by inactivity. Pain is alleviated with PT in 2020, home exercise every morning, treadmill use for 1 hr daily, heat, medications (Ibu), repositoning and rest. Interventional pain procedures completed include RIVAS L4-L5, BL RFA L3-L5 Patient is currently on Ibuprofen Patient denies any side effects of the medication(s), denies excessive drowsiness or sleepiness, denies suicidal ideation and reports that the current pain medication is helping to control the pain and improve activities of daily living. Patient denies any motor or sensory deficits. Patient denies any fever or night sweats, denies any change in the bowel movements or urination. Physical Examination: -Constitutional: Cooperative. Not in acute distress . - Neurologic: Cranial nerve II to XII intact. No focal neurological deficits. - Psychatric: Alert & oriented x 3. Matching mood & appropriate affect. Judgment and insight intact. - Musculoskeletal: Cervical spine: Muscle bulk/ tone/ strength in the bilateral upper extremities normal Vertebral body tenderness to palpation over Spurling test positive Distraction test positive Facet loading test positive Thoracic spine Muscle bulk / tone/ strength in the bilateral paraspinal muscles normal Vertebral body tender to palpation over Facet loading test positive Lumbar spine: Motor bulk/ tone/ strength lower extremities , thigh and legs : 5/5 Deep tendon reflexes : Normal Knee Jerk. Normal Ankle Jerk . Vertebral body tenderness to palpation over Lumbar Facet Loading Test positive jump reflex over BL L4-L5, L5-S1 facets Straight Leg Raise: positive at 30 degrees right side/ left side Gaenslen's Test positive Sacral spine : Severe tenderness over the Sacroiliac joint: right side / left side Range of motion: Flexion of the lumbar spine <60 degrees Range of motion: Extension of the lumbar spine <20 degrees Gaenslen's Test positive Dyana test: positive right side / left side Thigh Thrust Test Sacral Thrust Test Assessment and plan: Chronic low back pain secondary to lumbar degenerative disc disease, spondylosis with facet arthropathy without myelopathy Recommendation of BL RFA. Pt exhibited sufficient and substantial pain relief w prior BL RFA procedure. Risks, benefits of procedure discussed and pt verbalized understanding. Denies anticoagulant use or medical history of diabetes. All patient questions answered I have spent less than 30 minutes on patient care today. Dr Rosales was available by phone for the evaluation of this patient. The time was used to review the medical records including relevant urine studies and Prescription history (MAPs), review of the available imaging, evaluation and examination of the patient, coordination of care with the medical staff and if applicable referring physicians, as well as creation of the medical record PQRS Narrative: Smoking Status Former smoker Hx Alcohol Use (MH) No Home Medications: Ambulatory Orders Ibuprofen [Motrin] 800 mg PO TID PRN 04/23/17 Loratadine [Claritin] 10 mg PO DAILY 04/23/17 Losartan/Hydrochlorothiazide [Losartan-Hctz 100-12.5 mg Tab] 1 tab PO QAM 04/23/17 Omeprazole 20 mg PO QAM 04/23/17 amLODIPine [Norvasc] 5 mg PO QAM 04/23/17 atenoloL 25 mg PO BID 04/23/17 Multivitamins, Thera [Multivitamin (formulary)] 1 each PO DAILY 03/26/22 Unk Ocuvit 1 tab PO DAILY 03/26/22 Controlled Substance Measures - Controlled Substance Measures Is patient prescribed a controlled substance at discharge?: No
== END ==
LOC: PNWHC3 09:25
PROVIDERS: ATTEND Specialist
DX: M47.816 Spondylosis without myelopathy or radiculopathy, lumbar region (principal); G89.29 Other chronic pain; M51.36 Other intervertebral disc degeneration, lumbar region; Z87.891 Personal history of nicotine dependence; Z88.2 Allergy status to sulfonamides
CPT/HCPCS: 99211

== ENCOUNTER 2022-11-14 09:25 | Day surgery (SDC) | payer MEDICARE ==
[2022-11-14] MEDS: LACTATED RINGERS 1,000 ML IV SCH ×2 (09:51→10:54)
[2022-11-14 10:11] VITALS: RESP 16; TEMP 97
[2022-11-14] MEDS ORDERED: MIDAZOLAM 2 MG/2 ML VIAL ONE (10:56)
[2022-11-14] MEDS ORDERED: TRIAMCINOLONE ACETONIDE 40 MG/ML 1 ML VIAL ONE (10:56)
[2022-11-14] MEDS ORDERED: fentaNYL (PF) 50 MCG/ML 2 ML AMP ONE (10:56)
[2022-11-14] MEDS ORDERED: ROPIVACAINE 5 MG/ML 20 ML AMPULE ONE (10:56)
--- NOTE | 2022-11-14 11:22 | P.PCN ---
Date of Procedure: 11/14/22 Surgeon: Danni Michaels Pathology: none sent Condition: stable Disposition: PACU Description of Procedure: PREOPERATIVE DIAGNOSIS: Lumbar spondylosis without myelopathy, severe degenerative disc disease and scoliosis POSTOPERATIVE DIAGNOSIS: Lumbar spondylosis without myelopathy, scoliosis and severe degenerative disc disease PROCEDURES : Bilateral Radiofrequency thermocoagulation L4-L5, and L5-S1 medial branch, with fluoroscopic guidance ANESTHESIA: IV moderate conscious sedation with versed and fentanyl by the anesthesia Department and local infiltration with lidocaine 1% 5 ml Physician:Danni Michaels MD EBL: Minimal PROCEDURE INDICATION: The patient with low back pain secondary to lumbar facet arthropathy who had significant relief of pain with previous diagnostic lumbar medial branch block with Ropivacaine0.5%. PROCEDURE DESCRIPTION / TECHNIQUE: The patient was seen and identified in the preoperative area. Risks, benefits, complications, including but not limited to risk of infection ,bleeding , allergic reactions to the medications and no complete pain relief , and alternatives were discussed with the patient, the patient agreed to proceed with the procedure and signed the consent. IV was started. Vital signs remained stable throughout the procedure. Patient was taken to the OR and time out was completed. The patient was placed in the prone position on the procedure table. The lumber area was prepped and draped in the usual sterile fashion. . Vital signs were closely monitored during the procedure .IV sedation was used during the procedure to decrease patients anxiety. The target points were identified as follows: For the L5-S1 level which corresponds to the dorsal ramus of L5 the target point was at the superior medial aspect of the sacral ala on the Rt side of the spine on the AP view of fluoroscopy and for the L3, and L4 medial branches the target points were at the connection between the transverse process and the superior articular process of L4, and L5 vertebra respectively on the Rt oblique view of fluoroscopy. skin was marked, and localized with 1% lidocaineat these points. Subsequently, an 18 [id number] radiofrequency needles with a 10-mm curved active tips were advanced guided by fluoroscopy to each of the target points mentioned above in a superior medial direction to get the active tips as parallel as possible to the medial branches tracks. AP, oblique, and lateral views of fluoroscopy were used to verify needle tips position. Each level then underwent motor testing at 2.5 Hz and 0 to 3 volt with local stimulation, but no radicular symptoms down the legs. I then injected 1 mL of lidocaine 1% in each needle before starting radiofrequency thermocoagulation at 80 degrees celsius for 90 seconds. After that I injected 1 ml of PF Ropivacaine 0.5%(3 mls) with 40 mg of Kenalog, 1 mL of this mixture was given in each needle before taking the needles out intact. Then the left side with the same levels was done in the same manner. At the end of the procedure, the skin was cleansed and bandages were applied. A copy of needle placement fluoroscopy was saved on the C-arm machine. COMPLICATIONS: No acute complications. DISPOSITION / PLANS: The patient was placed in a supine position and transferred to the recovery area in a stable condition for observation and was discharged from the recovery room after meeting discharge criteria. Home discharge instructions given to the patient by the staff. The patient was reexamined prior to discharge. The patient will schedule a follow up in the clinic in 2-4 weeks.
[2022-11-14] MEDS ORDERED: IV FLUID CONTINUATION 300 ML IV ONE (11:30)
--- NOTE | 2022-11-14 11:36 | FL ---
Intraoperative/procedural fluoroscopic services were provided for radiofrequency lumbar bilateral. To anya fluoroscopy time is 8 seconds with a total of 1 submitted image to PACS. Total DAP [id number]. Plea se see the operative note for further details.
[2022-11-14 11:54] VITALS: BP 149/57; PULSE 50
== END 2022-11-14 12:03 | disposition home or self-care (01) ==
LOC: ORPAIN 09:25
PROVIDERS: ATTEND Anesthesiology
DX: M51.36 Other intervertebral disc degeneration, lumbar region (principal); M47.816 Spondylosis without myelopathy or radiculopathy, lumbar region; M41.86 Other forms of scoliosis, lumbar region; I10 Essential (primary) hypertension; K21.9 Gastro-esophageal reflux disease without esophagitis; Z87.891 Personal history of nicotine dependence; Z86.73 Personal history of transient ischemic attack (TIA), and cerebral infarction without residual deficits; Z88.2 Allergy status to sulfonamides; Z79.899 Other long term (current) drug therapy
CPT/HCPCS: 64635; 64636; J2250; J3301; J3010; J2795

== ENCOUNTER 2022-12-29 07:39 | Emergency (ER) | payer MEDICARE ==
[2022-12-29 07:43] VITALS: BP 171/70; PULSE 54; RESP 18; TEMP 97.7
--- NOTE | 2022-12-29 07:53 | ED ---
General Adult HPI - General Chief complaint: Skin/Abscess/Foreign Body Stated complaint: chest wound Time Seen by Provider: 12/29/22 07:42 Source: patient, RN notes reviewed, old records reviewed Mode of arrival: ambulatory Limitations: no limitations - History of Present Illness Initial comments: 77-year-old male presenting for evaluation of nonhealing wound to the right anterior chest wall. Patient and believe this has been present for the past several months and will not probably heal. There's been no fever. There is minimal surrounding erythema and minimal drainage. They have not seen any provider for evaluation. - Related Data Home Medications Medication Instructions Recorded Confirmed Ibuprofen [Motrin] 800 mg PO TID PRN 04/23/17 11/14/22 Losartan/Hydrochlorothiazide 1 tab PO QAM 04/23/17 11/14/22 [Losartan-Hctz 100-12.5 mg Tab] Omeprazole 20 mg PO QAM 04/23/17 11/14/22 amLODIPine [Norvasc] 5 mg PO QAM 04/23/17 11/14/22 atenoloL 25 mg PO BID 04/23/17 11/14/22 Multivitamins, Thera [Multivitamin 1 each PO DAILY 03/26/22 11/14/22 (formulary)] Unk Ocuvit 1 tab PO DAILY 03/26/22 11/14/22 Previous Rx's Medication Instructions Recorded Mupirocin 2% Oint [Bactroban 2% 1 applic TOPICAL TID #22 gm 12/29/22 Oint] Allergies Allergy/AdvReac Type Severity Reaction Status Date / Time Sulfa (Sulfonamide Allergy Unknown Verified 12/29/22 07:43 Antibiotics) Childhood Review of Systems ROS Statement: Those systems with pertinent positive or pertinent negative responses have been documented in the HPI. ROS Other: All systems not noted in ROS Statement are negative. Past Medical History Past Medical History: GERD/Reflux, Hypertension Additional Past Medical History / Comment(s): Had epidural steroid injection November 2021, chronic back pain radiating down babita legs stopping about at the knees, Hayfever History of Any Multi-Drug Resistant Organisms: MRSA Date of last positivie culture/infection: 04/23/17 MDRO Source:: axilla Past Surgical History: Hernia Repair, Orthopedic Surgery, Tonsillectomy Additional Past Surgical History / Comment(s): colonoscopy , bilateral cataract removals, pain procedures; R rotator cuff shoulder Past Anesthesia/Blood Transfusion Reactions: No Reported Reaction Past Psychological History: No Psychological Hx Reported Smoking Status: Former smoker Past Alcohol Use History: None Reported Past Drug Use History: None Reported - Past Family History Father Family Medical History: No Reported History Additional Family Medical History / Comment(s): Father was healthy. He lived to be 73 or 74 yrs old. He from a "blood disease." Mother Family Medical History: Dementia Additional Family Medical History / Comment(s): Mother at the age of 73 yrs with history of Alzheimer's. Brother(s) Additional Family Medical History / Comment(s): Patient has total of 8 brothers and sisters and one of a drug overdose. Patient has one daughter with history of spina bifida. General Exam Limitations: no limitations General appearance: alert, in no apparent distress Head exam: Present: atraumatic Eye exam: Present: PERRL ENT exam: Present: mucous membranes moist Neck exam: Present: normal inspection Respiratory exam: Absent: respiratory distress Cardiovascular Exam: Present: normal rhythm, bradycardia GI/Abdominal exam: Absent: distended Neurological exam: Present: alert Skin exam: Present: other (There is a subcentimeter lesion to the right anterior chest wall with no surrounding erythema, no current drainage. Nonhealing ulcer) Course Vital Signs 12/29/22 07:40 Temperature 97.7 F Pulse Rate 54 L Respiratory 18 Rate Blood Pressure 171/70 O2 Sat by Pulse 99 Oximetry Medical Decision Making - Medical Decision Making Was pt. sent in by a medical professional or institution (, PA, WOMENS HEALTH NURSE PRACTITIONER, urgent care, hospital, or penitentiary...) When possible be specific @ -[No] Did you speak to anyone other than the patient for history (EMS, parent, family, police, friend...)? What history was obtained from this source @ -[No] Did you review nursing and triage notes (agree or disagree)? Why? @ -[I reviewed and agree with nursing and triage notes] Were old charts reviewed (outside hosp., previous admission, EMS record, old EKG, old radiological studies, urgent care reports/EKG's, penitentiary records)? Report findings @ -[No old charts were reviewed] Differential Diagnosis (chest pain, altered mental status, abdominal pain women, abdominal pain men, vaginal bleeding, weakness, fever, dyspnea, syncope, headache, dizziness, GI bleed, back pain, seizure, CVA, palpatations, mental health, musculoskeletal)? @ Abscess, cellulitis, skin cancer EKG interpreted by me (3pts min.). @ -[As above] X-rays interpreted by me (1pt min.). @ -[None done] CT interpreted by me (1pt min.). @ -[None done] U/S interpreted by me (1pt. min.). @ -[None done] What testing was considered but not performed or refused? (CT, X-rays, U/S, labs)? Why? @ -[None] What meds were considered but not given or refused? Why? @ -[None] Did you discuss the management of the patient with other professionals (professionals i.e. , PA, WOMENS HEALTH NURSE PRACTITIONER, lab, RT, psych nurse, health and social care teacher, sandblasting supervisor, teacher, assault amphibious vehicle officer, director of casework services)? Give summary @ -[No] Was smoking cessation discussed for >3mins.? @ -[No] Was critical care preformed (if so, how long)? @ -[No] Were there social determinants of health that impacted care today? How? (Homelessness, low income, unemployed, alcoholism, drug addiction, transportation, low edu. Level, literacy, decrease access to med. care, alf, rehab)? @ -[No] Was there de-escalation of care discussed even if they declined (Discuss DNR or withdrawal of care, Hospice)? DNR status @ -[No] What co-morbidities impacted this encounter? (DM, HTN, Smoking, COPD, CAD, Cancer, CVA, ARF, Chemo, Hep., AIDS, mental health diagnosis, sleep apnea, morbid obesity)? @ -[None] Was patient admitted / discharged? Hospital course, mention meds given and route, prescriptions, significant lab abnormalities, going to OR and other pertinent info. @ 77-year-old male with nonhealing subcentimeter laceration to the right anterior chest. There is no signs of current infection however the patient does have history of MRSA. Will apply topical mupirocin. I feel this would be best evaluated by nuclear reactor engineer given the duration of present 3 months of nonhealing. This may require further evaluation. Undiagnosed new problem with uncertain prognosis? @ -[No] Drug Therapy requiring intensive monitoring for toxicity (Heparin, Nitro, Insulin, Cardizem)? @ -[No] Were any procedures done? @ -[No] Diagnosis/symptom? @ -Nonhealing wound on the right chest wall Acute, or Chronic, or Acute on Chronic? @ Chronic Disposition Clinical Impression: Skin ulceration Disposition: HOME SELF-CARE Condition: Good Instructions (If sedation given, give patient instructions): Cellulitis (ED) Additional Instructions: Please informed her primary care provider about this wound, please follow up with dermatology for further evaluation. Prescriptions: Mupirocin 2% Oint [Bactroban 2% Oint] 1 applic TOPICAL TID #22 gm Is patient prescribed a controlled substance at d/c from ED?: No Referrals: Jameson Marcus DO [Primary Care Provider] - 1-2 days Wilman Woods MD [STAFF PHYSICIAN] - 1-2 days Time of Disposition: 07:52
== END 2022-12-29 08:09 | disposition home or self-care (01) ==
LOC: EC 07:39
DX: L98.499 Non-pressure chronic ulcer of skin of other sites with unspecified severity (principal); I10 Essential (primary) hypertension; K21.9 Gastro-esophageal reflux disease without esophagitis; Z79.899 Other long term (current) drug therapy; Z87.891 Personal history of nicotine dependence; Z88.2 Allergy status to sulfonamides
CPT/HCPCS: 99283

== ENCOUNTER → 2023-02-12 | Outpatient (CLI) | payer MEDICARE ==
[2023-02-12 12:05] VITALS: BP 164/70; PULSE 49; RESP 18; TEMP 97.7
--- NOTE | 2023-02-18 07:33 | P.PAINPG ---
PQRS Measure Charge Sheet Comment: A 77 yr old male w at side with a history of severe and chronic LBP secondary to lumbar DDD and spondylosis with facet arthropathy without myelopathy presents today for evaluation s/p BL RFA L4-L5, L5-S1. Pt states he experienced 75% pain relief s/p procedure. Pain level is provoked at 8 /10 in intensity, constant, localized in the lumbar spine, sharp in character w shooting towards the BLEs and toes. Pain is provoked by standing/ lifting/ bending. Pain is alleviated with PT w massage x 2 wks in 2019, physician guided home exercises daily since, heat, medications, use of massage chair at home, sitting, repositioning and rest. Interventional pain procedures completed include BL RFA L3-L5 (Oct 2022) Patient is currently on Ibu Patient denies any side effects of the medication(s), denies excessive drowsiness or sleepiness, denies suicidal ideation and reports that the current pain medication is helping to control the pain and improve activities of daily living. Patient denies any motor or sensory deficits. Patient denies any fever or night sweats, denies any change in the bowel movements or urination. Physical Examination: -Constitutional: Cooperative. Not in acute distress . - Neurologic: Cranial nerve II to XII intact. No focal neurological deficits. - Psychatric: Alert & oriented x 3. Matching mood & appropriate affect. Judgment and insight intact. - Musculoskeletal: Cervical spine: Muscle bulk/ tone/ strength in the bilateral upper extremities normal Vertebral body tenderness to palpation over Spurling test positive Distraction test positive Facet loading test positive TTP Thoracic spine Muscle bulk / tone/ strength in the bilateral paraspinal muscles normal Vertebral body tender to palpation over Facet loading test positive TTP Lumbar spine: Motor bulk/ tone/ strength lower extremities , thigh and legs : 5/5 Deep tendon reflexes : Normal Knee Jerk. Normal Ankle Jerk . Vertebral body tenderness to palpation over L5 Frederick Test positive Lumbar Facet Loading Test positive Straight Leg Raise: positive at 30 degrees right side/ left side Gaenslen's Test positive Sacral spine : Severe tenderness over the Sacroiliac joint: right side / left side Range of motion: Flexion of the lumbar spine <60 degrees Range of motion: Extension of the lumbar spine <20 degrees Gaenslen's Test positive right side / left side Dyana test: positive right side / left side Thigh Thrust Test positive right side / left side Sacral Thrust Test positive right side / left side Assessment and plan: Chronic LBP secondary to lumbar DDD, spondylosis with facet arthropathy without myelopathy Recommendation of RIVAS L5-S1. May need a series fo injections for optimal pain relief. Risks, benefits of procedure discussed and pt verbalized understanding. Admits to anticoagulant use or medical history of diabetes. Protocol for discontinuation/ continuation of medications florian procedure discussed. Minimal anesthesia provided, if clinically indicated, consisting of Versed and Fentanyl. All questions answered. I have spent less than 30 minutes on patient care today. Dr Rosales was available by phone for the evaluation of this patient. The time was used to review the medical records including relevant urine studies and Prescription history (MAPs), review of the available imaging, evaluation and examination of the patient, coordination of care with the medical staff and if applicable referring physicians, as well as creation of the medical record PQRS Narrative: Smoking Status Former smoker Hx Alcohol Use (MH) No Home Medications: Ambulatory Orders Ibuprofen [Motrin] 800 mg PO TID PRN 04/23/17 Losartan/Hydrochlorothiazide [Losartan-Hctz 100-12.5 mg Tab] 1 tab PO QAM 04/23/17 Omeprazole 20 mg PO QAM 04/23/17 amLODIPine [Norvasc] 5 mg PO QAM 04/23/17 atenoloL 25 mg PO BID 04/23/17 Multivitamins, Thera [Multivitamin (formulary)] 1 each PO DAILY 03/26/22 Unk Ocuvit 1 tab PO DAILY 03/26/22 Mupirocin 2% Oint [Bactroban 2% Oint] 1 applic TOPICAL TID #22 gm 12/29/22 Controlled Substance Measures - Controlled Substance Measures Is patient prescribed a controlled substance at discharge?: No
== END ==
LOC: PNWHC3 08:31
PROVIDERS: ATTEND Specialist
DX: M51.37 Other intervertebral disc degeneration, lumbosacral region (principal); M47.817 Spondylosis without myelopathy or radiculopathy, lumbosacral region; G89.29 Other chronic pain; Z88.2 Allergy status to sulfonamides; Z87.891 Personal history of nicotine dependence
CPT/HCPCS: 99211

== ENCOUNTER 2023-03-05 10:43 | Day surgery (SDC) | payer MEDICARE ==
[2023-02-26 15:04] VITALS: BMI 21.6
[~2023-03-05 10:43] MED LIST changes: -LIDOCAINE 1% (10MG/ML) FOR IV START INTRADERMA PRN
[2023-03-05 11:00] VITALS: TEMP 97.7
[2023-03-05] MEDS ORDERED: methylPREDNISolone ACETATE 40 MG/ML 1 ML VIAL ONE (11:14)
[2023-03-05] MEDS ORDERED: IOPAMIDOL M200 10 ML VIAL ONE (11:14)
--- NOTE | 2023-03-05 11:20 | P.PCN ---
Date of Procedure: 03/05/23 Description of Procedure: Procedure: 1. L5-S1 Epidural steroid injection under fluoroscopic guidance # 09/02 , 2. Lumbar epidurogram PREOPERATIVE DIAGNOSIS: Lumbar degenerative disc disease, and Lumbar radiculopathy. POSTOPERATIVE DIAGNOSIS: Lumbar degenerative disc disease, and Lumbar radiculopathy. SURGEON: Gustavo Leal ANESTHESIA: Local with 1% lidocaine, and IV sedation: None EBL: None. Specimen removed: None Fluoroscopic image: saved to electronic medical records PROCEDURE INDICATION: The patient had history of Lumbar degenerative disc disease and Lumbar radiculopathy. Failed to conservative therapy. Presented for epidural steroid injection. PROCEDURE DESCRIPTION: The patient was seen and identified in the preoperative area. Risks, benefits, complications, and alternatives were discussed with the patient. The patient agreed to proceed with the procedure and signed the consent., and vital signs were stable. Patient was taken to the procedure area, and time out was completed. The patient was placed in the prone position on procedure table and a pillow was placed under the abdomen to reduce lumbar lordosis. The lumbosacral area was prepped and draped in the usual sterile fashion. Critical pause was taken. Vital signs were closely monitored during the procedure. Using anterior-posterior fluoroscopy, the L5-S1 interlaminar space was identified, and skin and deeper tissues were localized with 1% lidocaine. Using anterior-posterior fluoroscopy, lateral fluoroscopy, and gnob-[id number] technique, a 20 gauge 3.5 Tuohy epidural needle entered the epidural space. After negative aspiration of CSF and blood with no paresthesias, 1 ml of Isov ue200 contrast dye was injected and an excellent epidurogram was seen. Again after negative aspiration of CSF and blood with no paresthesias, 6 mL of block solution was injected into the epidural space. Block solution contained 80 mg of Depo-Medrol, and 4 mL of preservative-free normal saline. Needle was withdrawn intact, skin was cleansed, and bandages were applied. COMPLICATIONS: None. DISPOSITION / PLANS: The patient was placed in a supine position and transferred to the recovery area in a stable condition for observation. Patient was discharged from the recovery room after meeting discharge criteria. Home discharge instructions given to the patient by the staff. The patient was reexamined prior to discharge. The patient will schedule a follow up in the clinic in 4 weeks.
--- NOTE | 2023-03-05 11:29 | FL ---
EXAMINATION TYPE: FL guided pain mgmt statistic DATE OF EXAM: 03/05/2023 HISTORY: Fluoroscopy time Total dose area product (DAP) in uGy*m?, mGy*cm? (or similar): 0.66741 IMPRESSION: 1. Fluoroscopy time.
[2023-03-05 11:43] VITALS: BP 168/68; PULSE 49; RESP 20
== END 2023-03-05 11:44 | disposition home or self-care (01) ==
LOC: ORPAIN 10:43
DX: M51.16 Intervertebral disc disorders with radiculopathy, lumbar region (principal); I10 Essential (primary) hypertension; K21.9 Gastro-esophageal reflux disease without esophagitis; Z88.2 Allergy status to sulfonamides; Z79.899 Other long term (current) drug therapy
CPT/HCPCS: 62323; J1030; Q9966

== ENCOUNTER → 2023-04-01 | Outpatient (CLI) | payer MEDICARE ==
[2023-04-01 10:21] VITALS: BP 144/73; PULSE 100; RESP 15; TEMP 98.2
--- NOTE | 2023-04-01 14:21 | P.PAINPG ---
PQRS Measure Charge Sheet Comment: A 77 yr old male w at side with a history of severe and chronic LBP secondary to lumbar DDD and spondylosis with facet arthropathy without myelopathy presents today for evaluation s/p RIVAS L5-S1 #1. Pt states he experienced 50% pain relief x 4 wks s/p procedure. Pain level is provoked at 8 /10 in intensity, constant, localized in the R lumbar spine, sharp in character w shooting pain. Pain is provoked by standing/ lifting/ bending. Pain is alleviated with PT w massage x 2 wks in 2019, physician guided home exercises daily since, heat, medications, use of massage chair at home, sitting, repositioning and rest. Oswestry axial pain score of 25. Interventional pain procedures completed include BL RFA L3-L5 (Oct 2022), RIVAS L5-S1 x1 Patient is currently on Ibu Patient denies any side effects of the medication(s), denies excessive drowsiness or sleepiness, denies suicidal ideation and reports that the current pain medication is helping to control the pain and improve activities of daily living. Patient denies any motor or sensory deficits. Patient denies any fever or night sweats, denies any change in the bowel movements or urination. Physical Examination: -Constitutional: Cooperative. Not in acute distress . - Neurologic: Cranial nerve II to XII intact. No focal neurological deficits. - Psychatric: Alert & oriented x 3. Matching mood & appropriate affect. Judgment and insight intact. - Musculoskeletal: Cervical spine: Muscle bulk/ tone/ strength in the bilateral upper extremities normal Vertebral body tenderness to palpation over Spurling test positive Distraction test positive Facet loading test positive TTP Thoracic spine Muscle bulk / tone/ strength in the bilateral paraspinal muscles normal Vertebral body tender to palpation over Facet loading test positive TTP Lumbar spine: Motor bulk/ tone/ strength lower extremities , thigh and legs : 5/5 Deep tendon reflexes : Normal Knee Jerk. Normal Ankle Jerk . Vertebral body tenderness to palpation over L5 Frederick Test positive Lumbar Facet Loading Test positive Straight Leg Raise: positive at 30 degrees right side/ left side Gaenslen's Test positive Sacral spine : Severe tenderness over the Sacroiliac joint: right side / left side Range of motion: Flexion of the lumbar spine <60 degrees Range of motion: Extension of the lumbar spine <20 degrees Gaenslen's Test positive right side / left side Dyana test: positive right side / left side Thigh Thrust Test positive right side / left side Sacral Thrust Test positive right side / left side Assessment and plan: Chronic LBP secondary to lumbar DDD, spondylosis with facet arthropathy without myelopathy Recommendation of R paramedian RIVAS L5-S1 #2. May need a series of injections for optimal pain relief. Risks, benefits of procedure discussed and pt verbalized understanding. Admits to anticoagulant use or medical history of diabetes. Protocol for discontinuation/ continuation of medications florian procedure discussed. Minimal anesthesia provided, if clinically indicated, consisting of Versed and Fentanyl. All questions answered. I have spent less than 30 minutes on patient care today. Dr Rosales was available by phone for the evaluation of this patient. The time was used to review the medical records including relevant urine studies and Prescription history (MAPs), review of the available imaging, evaluation and examination of the patient, coordination of care with the medical staff and if applicable referring physicians, as well as creation of the medical record PQRS Narrative: Smoking Status Former smoker Hx Alcohol Use (MH) No Home Medications: Ambulatory Orders Ibuprofen [Motrin] 800 mg PO TID PRN 04/23/17 Losartan/Hydrochlorothiazide [Losartan-Hctz 100-12.5 mg Tab] 1 tab PO QAM 04/23/17 Omeprazole 20 mg PO QAM 04/23/17 amLODIPine [Norvasc] 5 mg PO QAM 04/23/17 atenoloL 25 mg PO BID 04/23/17 Multivitamins, Thera [Multivitamin (formulary)] 1 each PO DAILY 03/26/22 Unk Ocuvit 1 tab PO DAILY 03/26/22 Mupirocin 2% Oint [Bactroban 2% Oint] 1 applic TOPICAL TID #22 gm 12/29/22 Controlled Substance Measures - Controlled Substance Measures Is patient prescribed a controlled substance at discharge?: No
== END ==
LOC: PNWHC3 09:49
PROVIDERS: ATTEND Specialist
DX: M51.36 Other intervertebral disc degeneration, lumbar region (principal); M47.816 Spondylosis without myelopathy or radiculopathy, lumbar region; G89.29 Other chronic pain; Z87.891 Personal history of nicotine dependence; Z88.2 Allergy status to sulfonamides
CPT/HCPCS: 99211

== ENCOUNTER 2023-04-21 09:37 | Day surgery (SDC) | payer MEDICARE ==
[2023-04-14 14:02] VITALS: BMI 21.4
[2023-04-21 11:02] VITALS: TEMP 98.4
[2023-04-21] MEDS ORDERED: methylPREDNISolone ACETATE 80 MG/ML 1 ML VIAL ONE (11:26)
[2023-04-21] MEDS ORDERED: IOPAMIDOL M200 10 ML VIAL ONE (11:26)
--- NOTE | 2023-04-21 11:32 | P.PCN ---
Date of Procedure: 04/21/23 Description of Procedure: Procedure: 1. Right-sided L5-S1 Epidural steroid injection under fluoroscopic guidance , 2. Lumbar epidurogram PREOPERATIVE DIAGNOSIS: Lumbar degenerative disc disease, and Lumbar radiculopathy. POSTOPERATIVE DIAGNOSIS: Lumbar degenerative disc disease, and Lumbar radiculopathy. SURGEON: Gustavo Leal ANESTHESIA: Local with 1% lidocaine, and IV sedation: None EBL: None. Specimen removed: None Fluoroscopic image: saved to electronic medical records PROCEDURE INDICATION: The patient had history of Lumbar degenerative disc disease and Lumbar radiculopathy. Failed to conservative therapy. Presented for epidural steroid injection. PROCEDURE DESCRIPTION: The patient was seen and identified in the preoperative area. Risks, benefits, complications, and alternatives were discussed with the patient. The patient agreed to proceed with the procedure and signed the consent.and vital signs were stable. Patient was taken to the procedure area, and time out was completed. The patient was placed in the prone position on procedure table and a pillow was placed under the abdomen to reduce lumbar lordosis. The lumbosacral area was prepped and draped in the usual sterile fashion. Critical pause was taken. Vital signs were closely monitored during the procedure. Using anterior-posterior fluoroscopy, the L5-S1 interlaminar space was identified, and skin and deeper tissues were localized with 1% lidocaine. Using anterior-posterior fluoroscopy, lateral fluoroscopy, and hcmf-hq-noeikmngvn technique, a 20 gauge 3.5 Tuohy epidural needle entered the epidural space. After negative aspiration of CSF and blood with no paresthesias, 1 ml of [id number] contrast dye was injected and an excellent epidurogram was seen. Again after negative aspiration of CSF and blood with no paresthesias, 8 mL of block solution was injected into the epidural space. Block solution contained 80 mg of Depo-Medrol, and 6 mL of preservative-free normal saline. Needle was withdrawn intact, skin was cleansed, and bandages were applied. COMPLICATIONS: None. DISPOSITION / PLANS: The patient was placed in a supine position and transferred to the recovery area in a stable condition for observation. Patient was discharged from the recovery room after meeting discharge criteria. Home discharge instructions given to the patient by the staff. The patient was reexamined prior to discharge. The patient will schedule a follow up in the clinic in 4 weeks.
[2023-04-21 11:52] VITALS: BP 161/66; PULSE 53; RESP 20
--- NOTE | 2023-04-21 13:02 | FL ---
Intraoperative/procedural fluoroscopic services were provided for lumbar epidural steroid injection. Total fluoroscopy time is 2 seconds with a total of 3 submitted images to PACS. Total DAP 0.42562 mGy m2. Please see the operative note for further details.
== END 2023-04-21 12:07 ==
LOC: ORPAIN 09:37
DX: M51.16 Intervertebral disc disorders with radiculopathy, lumbar region (principal); I10 Essential (primary) hypertension; K21.9 Gastro-esophageal reflux disease without esophagitis; Z79.899 Other long term (current) drug therapy; Z88.2 Allergy status to sulfonamides
CPT/HCPCS: 62323; J1040; Q9966

== ENCOUNTER → 2023-06-22 | Outpatient (CLI) | payer MEDICARE ==
[2023-06-22 12:03] VITALS: BP 188/74; PULSE 98; RESP 16; TEMP 97.3
--- NOTE | 2023-06-22 14:22 | P.PAINPG ---
PQRS Measure Charge Sheet Comment: A 77 yr old male w at side with a history of severe and chronic LBP secondary to lumbar DDD and spondylosis with facet arthropathy without myelopathy presents today for evaluation s/p RIVAS L5-S1 #2. Pt states he experienced 70% pain relief x 3wks s/p procedure. Pain level is provoked at 9 /10 in intensity, constant, localized in the R lumbar spine, sharp in character w shooting pain to the R toes. Pain is provoked by standing/ lifting/ bending. Pain is alleviated with PT w massage x 2 wks in 2019, physician guided home exercises daily since, heat, medications, use of massage chair at home, sitting, repositioning and rest. Oswestry axial pain score of 25. Interventional pain procedures completed include BL RFA L3-L5 (Oct 2022), RIVAS L5-S1 x1, R paramedian RIVAS L5-S1 x2 Patient is currently on Ibu Patient denies any side effects of the medication(s), denies excessive drowsiness or sleepiness, denies suicidal ideation and reports that the current pain medication is helping to control the pain and improve activities of daily living. Patient denies any motor or sensory deficits. Patient denies any fever or night sweats, denies any change in the bowel movements or urination. Physical Examination: -Constitutional: Cooperative. Not in acute distress . - Neurologic: Cranial nerve II to XII intact. No focal neurological deficits. - Psychatric: Alert & oriented x 3. Matching mood & appropriate affect. Judgment and insight intact. - Musculoskeletal: Cervical spine: Muscle bulk/ tone/ strength in the bilateral upper extremities normal Vertebral body tenderness to palpation over Spurling test positive Distraction test positive Facet loading test positive TTP Thoracic spine Muscle bulk / tone/ strength in the bilateral paraspinal muscles normal Vertebral body tender to palpation over Facet loading test positive TTP Lumbar spine: Motor bulk/ tone/ strength lower extremities , thigh and legs : 5/5 Deep tendon reflexes : Normal Knee Jerk. Normal Ankle Jerk . Vertebral body tenderness to palpation over L5 Frederick Test positive Lumbar Facet Loading Test positive Straight Leg Raise: positive at 30 degrees right side/ left side Gaenslen's Test positive Sacral spine : Severe tenderness over the Sacroiliac joint: right side / left side Range of motion: Flexion of the lumbar spine <60 degrees Range of motion: Extension of the lumbar spine <20 degrees Gaenslen's Test positive right side / left side Dyana test: positive right side / left side Thigh Thrust Test positive right side / left side Sacral Thrust Test positive right side / left side Assessment and plan: Chronic LBP secondary to lumbar DDD, spondylosis with facet arthropathy without myelopathy Recommendation of R paramedian RIVAS L5-S1 #3. May need a series of injections for optimal pain relief. Valium 5mg #2 NR Use, side effects adverse reactions and safe storage discussed. Pt acknowledged understanding. Risks, benefits of procedure discussed and pt verbalized understanding. Admits to anticoagulant use or medical history of diabetes. Protocol for discontinuation/ continuation of medications florian procedure discussed. Minimal anesthesia provided, if clinically indicated, consisting of Versed and Fentanyl. All questions answered. I have spent less than 30 minutes on patient care today. Dr Rosales was available by phone for the evaluation of this patient. The time was used to review the medical records including relevant urine studies and Prescription history (MAPs), review of the available imaging, evaluation and examination of the patient, coordination of care with the medical staff and if applicable referring physicians, as well as creation of the medical record PQRS Narrative: Smoking Status Former smoker Hx Alcohol Use (MH) No Home Medications: Ambulatory Orders Ibuprofen [Motrin] 800 mg PO TID PRN 04/23/17 Losartan/Hydrochlorothiazide [Losartan-Hctz 100-12.5 mg Tab] 1 tab PO QAM 04/23/17 Omeprazole 20 mg PO QAM 04/23/17 amLODIPine [Norvasc] 5 mg PO QAM 04/23/17 atenoloL 25 mg PO BID 04/23/17 Multivitamins, Thera [Multivitamin (formulary)] 1 each PO DAILY 03/26/22 Sodium Bicarbonate 1 tab PO DAILY 04/14/23 Vits A,C,E/Lutein/Minerals [Ocuvite with Lutein Tablet] 1 each PO DAILY 04/14/23 diazePAM [Valium] 5 mg PO Q24H PRN 1 Days #2 tab 06/22/23 Controlled Substance Measures - Controlled Substance Measures Is patient prescribed a controlled substance at discharge?: Yes When asked, does pt state using other controlled substances?: No If prescribed controlled substance>3 days was MAPS reviewed?: Prescribed <3 Days
== END ==
LOC: PNWHC3 09:14
PROVIDERS: ATTEND Specialist
DX: M51.36 Other intervertebral disc degeneration, lumbar region (principal); M47.816 Spondylosis without myelopathy or radiculopathy, lumbar region; G89.29 Other chronic pain; Z87.891 Personal history of nicotine dependence; Z88.2 Allergy status to sulfonamides
CPT/HCPCS: 99211

== ENCOUNTER 2023-07-09 09:22 | Day surgery (SDC) | payer MEDICARE ==
[2023-07-09 10:11] VITALS: TEMP 97.9
[2023-07-09] MEDS ORDERED: methylPREDNISolone ACETATE 40 MG/ML 1 ML VIAL ONE (10:26)
[2023-07-09] MEDS ORDERED: IOPAMIDOL M200 10 ML VIAL ONE (10:26)
--- NOTE | 2023-07-09 10:33 | P.PCN ---
Date of Procedure: 07/09/23 Procedure(s) Performed: PREOPERATIVE DIAGNOSIS: 1- Lumbar Degenerative Disc Diseases 2-Lumbar spondylosis with Facet arthropathy without myelopathy. 3-lumbar radiculopathy POSTOPERATIVE DIAGNOSIS: 1-lumbar degenerative disc disease. 2-lumbar spondylosis with facet arthropathy without myelopathy. 3-lumbar radiculopathy PROCEDURE 1. Lumbar epidural steroid injection under fluoroscopic guidance at the L5-S1 level. (Fluoroscopy imaging was available in radiology department) 2. Lumbar epidurogram. ANESTHESIA: Lidocaine 1% 3 and then only. EBL: Minimal PROCEDURE INDICATION: The patient with low back pain and radiculitis symptoms unresponsive to conservative treatment. Fluoroscopy was used to optimize visualization of the needle placement and to maximize safety. PROCEDURE DESCRIPTION / TECHNIQUE: The patient was seen and identified in the preoperative area. Risks, benefits, complications including but not limited to infections ,bleeding ,allergic reaction to the medications ,nerve damage and not complete pain releife , and alternatives were discussed with the patient. The patient agreed to proceed with the procedure and signed the consent, and vital signs were stable. Patient was taken to the OR and time out was completed. The patient was placed in the prone position on procedure table and a pillow was placed under the abdomen to reduce lumbar lordosis. The lumbosacral area was prepped and draped in the usual sterile fashion.ere closely monitored during the procedure. Vital signs was monitered during the entire procedure. Using anterior-posterior fluoroscopy, the L5-S1 interlaminar space was identified and the skin over this site was marked and then infiltrated with 1% lidocaine subcutaneously. Subsequently, a 20-gauge Tuohy epidural needle was inserted ( right paramedial ) and advanced toward the epidural space using the ``Loss of resistance technique and guided by AP and lateral fluoroscopy. The correct needle position in the epidural space was verified with the injection of 2 mL of the water soluble contrast dye Isovue 200 contrast and observing an excellent epidurogram with the epidural spread of the dye, after negative aspiration for blood and CSF and in the absence of paresthesias. Again after negative aspiration, a 6 ml mixture containing 40 mg of Depo-medrol ( Preservetive Free ), and 2 ml of preservative free Normal Saline, and 2 ml of preservative free lidocaine 1% solution was injected and a washout of epidur ogram was seen. Needle was withdrawn intact, skin was cleansed, and bandages were applied. COMPLICATIONS: None DISPOSITION / PLANS: The patient was placed in a supine position and transferred to the recovery area in a stable condition for observation. There was no evidence of lower extremity motor or sensory deficit after the procedure. Patient was discharged from the recovery room after meeting discharge criteria. Home discharge instructions were given to the patient by the staff. The patient was reexamined prior to discharge. The patient will schedule a follow up in the clinic in 2-4 weeks.
[2023-07-09 10:41] VITALS: RESP 16
--- NOTE | 2023-07-09 11:01 | FL ---
Intraoperative/procedural fluoroscopic services were provided for lumbar epidural steroid injection. Total fluoroscopy time is 4.7 seconds with a total of 1 submitted image to PACS. Total DAP [id number] mG ym2. Please see the operative note for further details.
[2023-07-09 11:08] VITALS: BP 151/62; PULSE 54
== END 2023-07-09 11:07 | disposition home or self-care (01) ==
LOC: ORPAIN 09:22
PROVIDERS: ATTEND Specialist
DX: M51.16 Intervertebral disc disorders with radiculopathy, lumbar region (principal); M47.26 Other spondylosis with radiculopathy, lumbar region; Z88.2 Allergy status to sulfonamides; Z91.030 Bee allergy status
CPT/HCPCS: 62323; J1030; Q9966

== ENCOUNTER → 2023-11-16 | Outpatient (CLI) | payer MEDICARE ==
[2023-11-16 11:09] VITALS: BP 147/77; PULSE 62; RESP 15; TEMP 98.1
--- NOTE | 2023-11-16 11:32 | XR ---
EXAM TYPE: LUMBAR SPINE X RAY SERIES COMPARISON: NONE HISTORY: Pain TECHNIQUE: 4 views are submitted. FINDINGS: Alignment is anatomic. The pedicles are intact. The transverse processes are intact. There is diff use osteopenia with scoliosis of the spinal severe multilevel degenerative disc disease with facet ar thropathy. Vascular calcifications. IMPRESSION: 1. Scoliosis with severe multilevel degenerative disc disease, facet arthropathy and suspected forami nal encroachment. Recommend follow-up MRI.
--- NOTE | 2023-11-16 13:22 | P.PAINPG ---
PQRS Measure Charge Sheet Comment: A 78 yr old male w at side with a history of severe and chronic LBP secondary to lumbar DDD and spondylosis with facet arthropathy without myelopathy presents today for evaluation s/p RIVAS L5-S1 #3. Pt states he experienced 75 % pain relief x 3 mo s/p procedure. Pain level is provoked at 7 /10 in intensity, constant, localized in the lumbar spine, stabbing in character w shooting pain to the R toes. Pain is provoked by standing/ lifting/ bending. Pain is alleviated with PT w massage x 2 wks in 2019, physician guided home exercises daily since, heat, medications, use of massage chair at home, sitting, repositioning and rest. Oswestry axial pain score of 24. Interventional pain procedures completed include BL RFA L3-L5 (Oct 2022), RIVAS L5-S1 x3, R paramedian RIVAS L5-S1 x2 Patient is currently on Ibu Patient denies any side effects of the medication(s), denies excessive drowsiness or sleepiness, denies suicidal ideation and reports that the current pain medication is helping to control the pain and improve activities of daily living. Patient denies any motor or sensory deficits. Patient denies any fever or night sweats, denies any change in the bowel movements or urination. Physical Examination: -Constitutional: Cooperative. Not in acute distress . - Neurologic: Cranial nerve II to XII intact. No focal neurological deficits. - Psychatric: Alert & oriented x 3. Matching mood & appropriate affect. Judgment and insight intact. - Musculoskeletal: Cervical spine: Muscle bulk/ tone/ strength in the bilateral upper extremities normal Vertebral body tenderness to palpation over Spurling test positive Distraction test positive Facet loading test positive TTP Thoracic spine Muscle bulk / tone/ strength in the bilateral paraspinal muscles normal Vertebral body tender to palpation over Facet loading test positive TTP Lumbar spine: Motor bulk/ tone/ strength lower extremities , thigh and legs : 5/5 Deep tendon reflexes : Normal Knee Jerk. Normal Ankle Jerk . Vertebral body tenderness to palpation Frederick Test positive Lumbar Facet Loading Test positive BL L4-L5, L5-S1 Straight Leg Raise: positive at 30 degrees right side/ left side Gaenslen's Test positive Sacral spine : Severe tenderness over the Sacroiliac joint: right side / left side Range of motion: Flexion of the lumbar spine <60 degrees Range of motion: Extension of the lumbar spine <20 degrees Gaenslen's Test positive right side / left side Dyana test: positive right side / left side Thigh Thrust Test positive right side / left side Sacral Thrust Test positive right side / left side Assessment and plan: Chronic LBP secondary to lumbar DDD, spondylosis with facet arthropathy without myelopathy Recommendation of lumbar x ray M51.36 May need additional testing if clinically indicated. Would benefit from a repeat RFA at a later time. Risks, benefits of procedure discussed and pt verbalized understanding. Admits to anticoagulant use or medical history of diabetes. Protocol for discontinuation/ continuation of medications florian procedure discussed. Minimal anesthesia provided, if clinically indicated, consisting of Versed and Fentanyl. All questions answered. I have spent less than 30 minutes on patient care today. Dr Rosales was available by phone for the evaluation of this patient. The time was used to re view the medical records including relevant urine studies and Prescription history (MAPs), review of the available imaging, evaluation and examination of the patient, coordination of care with the medical staff and if applicable referring physicians, as well as creation of the medical record PQRS Narrative: Smoking Status Former smoker Hx Alcohol Use (MH) No Home Medications: Ambulatory Orders Ibuprofen [Motrin] 800 mg PO TID PRN 04/23/17 Losartan/Hydrochlorothiazide [Losartan-Hctz 100-12.5 mg Tab] 1 tab PO QAM 04/23/17 Omeprazole 20 mg PO QAM 04/23/17 amLODIPine [Norvasc] 5 mg PO QAM 04/23/17 atenoloL 25 mg PO BID 04/23/17 Multivitamins, Thera [Multivitamin (formulary)] 1 each PO DAILY 03/26/22 Sodium Bicarbonate 1 tab PO DAILY 04/14/23 Vits A,C,E/Lutein/Minerals [Ocuvite with Lutein Tablet] 1 each PO DAILY 04/14/23 diazePAM [Valium] 5 mg PO Q24H PRN 1 Days #2 tab 06/22/23 Controlled Substance Measures - Controlled Substance Measures Is patient prescribed a controlled substance at discharge?: No
== END ==
LOC: PNWHC3 09:42
PROVIDERS: ATTEND Specialist
DX: M51.37 Other intervertebral disc degeneration, lumbosacral region (principal); M47.817 Spondylosis without myelopathy or radiculopathy, lumbosacral region; G89.29 Other chronic pain; M41.87 Other forms of scoliosis, lumbosacral region; Z87.891 Personal history of nicotine dependence; Z88.2 Allergy status to sulfonamides
CPT/HCPCS: 72100; G0463; 99211

== ENCOUNTER → 2023-12-04 | Outpatient (CLI) | payer MEDICARE ==
--- NOTE | 2023-12-07 08:35 | MR ---
EXAMINATION TYPE: MR lumbar spine wo con DATE OF EXAM: 12/04/2023 9:58 AM CLINICAL INDICATION:Male, 78 years old with history of M51.36 LUMBAR DISC DEGENERATION; PHH, Lower ba ck pain, BLE radiculopathy. COMPARISON: 11/16/2023. MRI 03/13/2015 TECHNIQUE: Multi planar, multi sequence imaging was performed utilizing: T1-weighted, T2-weighted, a nd turbo inversion recovery imaging of the lumbar spine. IV Contrast: cc . (None if empty) FINDINGS: Alignment: The lumbar vertebral bodies have preserved heights and alignment. Cord: The conus medullaris and the distal spinal cord appear unremarkable with regards to their signa l intensity and morphology. Bones/Discs: Severe multilevel degeneration changes throughout the spine with levoscoliosis apex L4, osteophytes, disc space narrowing, facet arthropathy and Modic endplate changes. T12-L1: No evidence of significant spinal canal stenosis or neural foraminal stenosis. L1-L2: Disc bulge and facet joint arthropathy result in mild spinal canal and moderate bilateral neur al foraminal stenosis. L2-L3: Disc bulge and facet joint arthropathy result in severe spinal canal and severe right and mode rate to severe left neural foraminal stenosis. L3-L4: Disc bulge and facet joint arthropathy result in moderate spinal canal and severe right and mo derate to severe left neural foraminal stenosis. L4-L5: Disc bulge and facet joint arthropathy result in moderate to severe spinal canal and severe bi lateral neural foraminal stenosis. L5-S1: The disc is rounded posterior morphology without significant spinal canal stenosis. Facet join t arthropathy with mild bilateral neural foraminal stenosis. No significant spinal canal or neural foraminal stenosis in the remainder of the visualized levels. Other findings: Simple appearing high T2 right renal cyst. Gallstone in the gallbladder lumen sugges fr[place]. IMPRESSION: Severe degeneration changes throughout the spine with severe spinal canal stenosis at L2-L3 moderate to severe L4-L5 and moderate L3-L4. Severe neural foraminal stenosis at L4-L5 bilaterally, L2-L3 and L3-L4 severe right and moderate to severe left. Scoliosis changes apex L4 on the left.
== END | disposition home or self-care (01) ==
LOC: RADMRIMAIN 08:20
PROVIDERS: ATTEND Specialist
DX: M47.26 Other spondylosis with radiculopathy, lumbar region (principal); M48.061 Spinal stenosis, lumbar region without neurogenic claudication; M99.73 Connective tissue and disc stenosis of intervertebral foramina of lumbar region; M41.86 Other forms of scoliosis, lumbar region; M51.16 Intervertebral disc disorders with radiculopathy, lumbar region
CPT/HCPCS: 72148

== ENCOUNTER → 2023-12-09 | Outpatient (CLI) | payer MEDICARE ==
[2023-12-09 10:11] VITALS: BP 176/72; PULSE 49; RESP 16; TEMP 97.3
--- NOTE | 2023-12-09 13:46 | P.PAINPG ---
PQRS Measure Charge Sheet Comment: A 78 yr old male w at side with a history of severe and chronic LBP secondary to lumbar DDD and spondylosis with facet arthropathy without myelopathy presents today for evaluation. Pt underwent a BL RFA of the L4-L5, L5-S1 in Oct 2022 where he experienced 90 % pain relief x 1 yr s/p procedure. Pain level is provoked at 7 /10 in intensity, constant, localized in the lumbar spine, stabbing in character w shooting pain to the R toes. Pain is provoked by standing/ lifting/ bending. Pain is alleviated with PT w massage x 2 wks in 2019, physician guided home exercises daily since 2019, heat, medications, use of massage chair at home, sitting, repositioning and rest. Oswestry axial pain score of 24. Interventional pain procedures completed include BL RFA L3-L5 (Oct 2022), RIVAS L5-S1 x3, R paramedian RIVAS L5-S1 x2 Patient is currently on Ibu Patient denies any side effects of the medication(s), denies excessive drowsiness or sleepiness, denies suicidal ideation and reports that the current pain medication is helping to control the pain and improve activities of daily living. Patient denies any motor or sensory deficits. Patient denies any fever or night sweats, denies any change in the bowel movements or urination. Physical Examination: -Constitutional: Cooperative. Not in acute distress . - Neurologic: Cranial nerve II to XII intact. No focal neurological deficits. - Psychatric: Alert & oriented x 3. Matching mood & appropriate affect. Judgment and insight intact. - Musculoskeletal: Cervical spine: Muscle bulk/ tone/ strength in the bilateral upper extremities normal Vertebral body tenderness to palpation over Spurling test positive Distraction test positive Facet loading test positive TTP Thoracic spine Muscle bulk / tone/ strength in the bilateral paraspinal muscles normal Vertebral body tender to palpation over Facet loading test positive TTP Lumbar spine: Motor bulk/ tone/ strength lower extremities , thigh and legs : 5/5 Deep tendon reflexes : Normal Knee Jerk. Normal Ankle Jerk . Vertebral body tenderness to palpation Frederick Test positive Lumbar Facet Loading Test positive BL L4-L5, L5-S1 Straight Leg Raise: positive at 30 degrees right side/ left side Gaenslen's Test positive Sacral spine : Severe tenderness over the Sacroiliac joint: right side / left side Range of motion: Flexion of the lumbar spine <60 degrees Range of motion: Extension of the lumbar spine <20 degrees Gaenslen's Test positive right side / left side Dyana test: positive right side / left side Thigh Thrust Test positive right side / left side Sacral Thrust Test positive right side / left side Imaging: MRI non contrast of the lumbar spine from 12/04/23 reviewed Assessment and plan: Chronic LBP secondary to L4-L5 spinal stenosis, DDD, spondylosis with facet arthropathy without myelopathy Recommendation of BL RFA L3-L5. Exhibited substantial pain relief w prior BL RFA L3-L5 from Oct 2022. Risks, benefits of procedure discussed and pt verbalized understanding. Admits to anticoagulant use or medical history of diabetes. Protocol for discontinuation/ continuation of medications florian pr ocedure discussed. Minimal anesthesia provided, if clinically indicated, consisting of Versed and Fentanyl. All questions answered. I have spent less than 30 minutes on patient care today. Dr Rosales was available by phone for the evaluation of this patient. The time was used to review the medical records including relevant urine studies and Prescription history (MAPs), review of the available imaging, evaluation and examination of the patient, coordination of care with the medical staff and if applicable referring physicians, as well as creation of the medical record PQRS Narrative: Smoking Status Former smoker Hx Alcohol Use (MH) No Home Medications: Ambulatory Orders Ibuprofen [Motrin] 800 mg PO TID PRN 04/23/17 Losartan/Hydrochlorothiazide [Losartan-Hctz 100-12.5 mg Tab] 1 tab PO QAM 04/23/17 Omeprazole 20 mg PO QAM 04/23/17 amLODIPine [Norvasc] 5 mg PO QAM 04/23/17 atenoloL 25 mg PO BID 04/23/17 Multivitamins, Thera [Multivitamin (formulary)] 1 each PO DAILY 03/26/22 Sodium Bicarbonate 1 tab PO DAILY 04/14/23 Vits A,C,E/Lutein/Minerals [Ocuvite with Lutein Tablet] 1 each PO DAILY 04/14/23 diazePAM [Valium] 5 mg PO Q24H PRN 1 Days #2 tab 06/22/23 Controlled Substance Measures - Controlled Substance Measures Is patient prescribed a controlled substance at discharge?: No
== END ==
LOC: PNWHC3 09:12
PROVIDERS: ATTEND Specialist
DX: M48.061 Spinal stenosis, lumbar region without neurogenic claudication (principal); M51.36 Other intervertebral disc degeneration, lumbar region; M47.816 Spondylosis without myelopathy or radiculopathy, lumbar region; Z88.2 Allergy status to sulfonamides; Z87.891 Personal history of nicotine dependence
CPT/HCPCS: 99211

== ENCOUNTER 2023-12-22 06:20 | Day surgery (SDC) | payer MEDICARE ==
[2023-12-22] MEDS: LACTATED RINGERS 1,000 ML IV SCH (07:19)
[2023-12-22 07:26] VITALS: RESP 18; TEMP 97.6
[2023-12-22] MEDS ORDERED: LACTATED RINGERS 1,000 ML IV SCH (07:30)
[2023-12-22] MEDS ORDERED: ROPIVACAINE 5MG/ML 20ML VIAL ONE (08:10)
[2023-12-22] MEDS ORDERED: MIDAZOLAM 2 MG/2 ML VIAL ONE (08:10)
[2023-12-22] MEDS ORDERED: fentaNYL (PF) 50 MCG/ML 2 ML AMP ONE (08:10)
[2023-12-22] MEDS ORDERED: methylPREDNISolone ACETATE 40 MG/ML 1 ML VIAL ONE (08:10)
--- NOTE | 2023-12-22 08:39 | P.PCN ---
Date of Procedure: 12/22/23 Procedure(s) Performed: PREOPERATIVE DIAGNOSIS: 1-Lumbar Spondylosis with Facet Arthropathy without myelopathy. 2- Lumber degenerative disc disease. POSTOPERATIVE DIAGNOSIS: 1- Lumbar Spondylosis with Facet Arthropathy without myelopathy. 2- Lumber degenerative disc disease. PROCEDURES : Bilateral Radiofrequency thermocoagulation, L3 , L4 ,L5 medial branch, with fluoroscopic guidance (fluor images available in the radiology department) ( to denervate the facet joint at bilateral L4-5 ,and L5-S1 levels ). ANESTHESIA: Moderate sedation with intravenous versed 1 mg and fentaneyl 50 mcg . (Sedation start time at 0810, end time 0836 ) EBL: Minimal PROCEDURE INDICATION: The patient with low back pain secondary to lumbar facet arthropathy who had more than 50% relief of her pain with previous diagnostic lumbar medial branch block with bupivacaine. PROCEDURE DESCRIPTION / TECHNIQUE: The patient was seen and identified in the preoperative area. Risks, benefits, complications, including but not limited to risk of infection ,bleeding , allergic reactions to the medications and no complete pain releife , and alternatives were discussed with the patient, the patient agreed to proceed with the procedure and signed the consent. IV was started. Vital signs remained stable throughout the procedure. Patient was taken to the OR and time out was completed. The patient was placed in the prone position on the procedure table. The lumber area was prepped and draped in the usual sterile fashion. . Vital signs were closely monitored during the procedure .IV sedation was used during the procedure to decrease patients anxiety. Using AP and then oblique fluoroscopy, the ``eye of the Paulo dog corresponding to the connection between the superior and transverse articular processes of right L3, L4, and L5 were identified, marked, and localized with 1% lidocaine. Subsequently, a 18 [id number] radiofrequency cannula with a 10- mm active tip was advanced guided by fluoroscopy to each of the``eyes of the Paulo dog at right L3, L4, and L5. Each site then underwent sensory testing at 50 Hz and 0 to 1 volt and motor testing at 2.5 Hz and 0 to 3 volt with local stimulation, but no radicular symptoms down the legs. Thereafter each sites underwent radiofrequency thermocoagulation at 80 degrees celsius for 90 seconds after injecting 0.5 ml of PF Ropivacaine 1ml, then after the thermocoagulation done , 1 ml of the block solution containing Depo-Medrol 20 mg and 3 ml of Ropivacaine 0.5% was injected at the right L3 , L4 , and L5 , levels after negative aspiration of CSF and blood and with no paresthesias. Cannulas were retracted while injecting lidocaine 1% until the needle is out. The same procedure was repeated at the level of Left L3, L4, and L5 levels. At the end of the procedure, the skin was cleansed and bandages were applied. COMPLICATIONS: No acute complications. DISPOSITION / PLANS: The patient was placed in a supine position and transferred to the recovery area in a stable condition for observation and was discharged from the recovery room after meeting discharge criteria. Home discharge instructions given to the patient by the staff. The patient was reexamined prior to discharge. The patient will schedule a follow up in the clinic in 2-4 weeks.
[2023-12-22] MEDS: IV FLUID CONTINUATION 650 ML IV ONE (08:43)
--- NOTE | 2023-12-22 09:00 | FL ---
EXAMINATION TYPE: FL guided pain mgmt statistic DATE OF EXAM: 12/22/2023 FLUOROSCOPY Fluoroscopy time of 23 seconds was used during lumbar radiofrequency ablation. 6 image/s document/s the procedure. 0.89212 mGycm2 DAP dose
[2023-12-22 09:42] VITALS: BP 162/67; PULSE 51
== END 2023-12-22 09:15 | disposition home or self-care (01) ==
LOC: ORPAIN 06:20
PROVIDERS: ATTEND Specialist
DX: M51.36 Other intervertebral disc degeneration, lumbar region (principal); M47.816 Spondylosis without myelopathy or radiculopathy, lumbar region; Z88.2 Allergy status to sulfonamides; Z79.899 Other long term (current) drug therapy
CPT/HCPCS: 64635; 64636 ×2; 99152; 99153; J2250; J3010; J2795; J1010

== ENCOUNTER → 2024-01-28 | Outpatient (CLI) | payer MEDICARE ==
[2024-01-28 08:07] VITALS: BP 146/88; PULSE 44; RESP 15; TEMP 98.5
--- NOTE | 2024-01-28 14:45 | P.PAINPG ---
PQRS Measure Charge Sheet Comment: A 78 yr old male w at side with a history of severe and chronic LBP secondary to lumbar DDD and spondylosis with facet arthropathy without myelopathy presents today for evaluation s/p BL RFA of the L4-L5, L5-S1. Pt states he experienced 70% pain relief s/p procedure. Pain level is provoked at 3 /10 in intensity, constant, localized in the lumbar spine, stabbing in character w shooting pain to the R toes. Pain is provoked by standing/ lifting/ bending. Pain is alleviated with PT w massage x 2 wks in 2019, physician guided home exercises daily since 2019, heat, medications, use of massage chair at home, sitting, repositioning and rest. Oswestry axial pain score of 19. Interventional pain procedures completed include BL RFA L3-L5 (Oct 2022), RIVAS L5-S1 x3, R paramedian RIVAS L5-S1 x2 Patient is currently on Ibu Patient denies any side effects of the medication(s), denies excessive drowsiness or sleepiness, denies suicidal ideation and reports that the current pain medication is helping to control the pain and improve activities of daily living. Patient denies any motor or sensory deficits. Patient denies any fever or night sweats, denies any change in the bowel movements or urination. Physical Examination: -Constitutional: Cooperative. Not in acute distress . - Neurologic: Cranial nerve II to XII intact. No focal neurological deficits. - Psychatric: Alert & oriented x 3. Matching mood & appropriate affect. Judgment and insight intact. - Musculoskeletal: Cervical spine: Muscle bulk/ tone/ strength in the bilateral upper extremities normal Vertebral body tenderness to palpation over Spurling test positive Distraction test positive Facet loading test positive TTP Thoracic spine Muscle bulk / tone/ strength in the bilateral paraspinal muscles normal Vertebral body tender to palpation over Facet loading test positive TTP Lumbar spine: Motor bulk/ tone/ strength lower extremities , thigh and legs : 5/5 Deep tendon reflexes : Normal Knee Jerk. Normal Ankle Jerk . Vertebral body tenderness to palpation Frederick Test positive Taut bands w twitch response over BL L2-S1 Lumbar Facet Loading Test positive Straight Leg Raise: positive at 30 degrees right side/ left side Gaenslen's Test positive Sacral spine : Severe tenderness over the Sacroiliac joint: right side / left side Range of motion: Flexion of the lumbar spine <60 degrees Range of motion: Extension of the lumbar spine <20 degrees Gaenslen's Test positive right side / left side Dyana test: positive right side / left side Thigh Thrust Test positive right side / left side Sacral Thrust Test positive right side / left side Imaging: MRI non contrast of the lumbar spine from 12/04/23 reviewed Assessment and plan: Chronic LBP secondary to L4-L5 spinal stenosis, DDD, spondylosis with facet arthropathy without myelopathy Recommendation of BL TPIs L2-S1 #1. May need a series of injections for optimal pain relief. Risks, benefits of procedure discussed and pt verbalized understanding. Admits to anticoagulant use or medical history of diabetes. Protocol for discontinuation/ continuation of medications florian procedure discussed. All questions answered. I have spent less than 30 minutes on patient care today. Dr Rosales was available by phone for the evaluation of this patient. The time was used to review the medical records including relevant urine studies and Prescription history (MAPs), review of the available imaging, evaluation and examination of the patient, coordination of care with the medical staff and if applicable referring physicians, as well as creation of the medical record - Pain Location Bilateral Lower Back Non-Pharmacological Interventions: Heat, Ice, Inactivity, Position/Reposition Pharmacological Interventions: Epidural, PRN Medication PQRS Narrative: Smoking Status Former smoker Hx Alcohol Use (MH) No Home Medications: Ambulatory Orders Ibuprofen [Motrin] 800 mg PO TID PRN 04/23/17 Losartan/Hydrochlorothiazide [Losartan-Hctz 100-12.5 mg Tab] 1 tab PO QAM 04/23/17 Omeprazole 20 mg PO QAM 04/23/17 amLODIPine [Norvasc] 5 mg PO QAM 04/23/17 atenoloL 25 mg PO BID 04/23/17 Multivitamins, Thera [Multivitamin (formulary)] 1 each PO DAILY 03/26/22 Sodium Bicarbonate 1 tab PO DAILY 04/14/23 Vits A,C,E/Lutein/Minerals [Ocuvite with Lutein Tablet] 1 each PO DAILY 04/14/23 diazePAM [Valium] 5 mg PO Q24H PRN 1 Days #2 tab 06/22/23 methocarbamoL [Robaxin] 500 mg PO BID PRN 30 Days #60 tab 01/28/24 Controlled Substance Measures - Controlled Substance Measures Is patient prescribed a controlled substance at discharge?: No
== END ==
LOC: PNWHC3 07:19
PROVIDERS: ATTEND Specialist
DX: M48.061 Spinal stenosis, lumbar region without neurogenic claudication (principal); M47.817 Spondylosis without myelopathy or radiculopathy, lumbosacral region; Z87.891 Personal history of nicotine dependence; Z88.2 Allergy status to sulfonamides
CPT/HCPCS: 99211

== ENCOUNTER 2024-02-11 06:34 | Day surgery (SDC) | payer MEDICARE ==
[2024-02-11] MEDS ORDERED: LACTATED RINGERS 1,000 ML IV SCH (07:18)
[2024-02-11 07:21] VITALS: RESP 16; TEMP 98.2
[2024-02-11] MEDS ORDERED: ROPIVACAINE 5MG/ML 20ML VIAL ONE (07:57)
[2024-02-11] MEDS ORDERED: methylPREDNISolone ACETATE 40 MG/ML 1 ML VIAL ONE (07:57)
--- NOTE | 2024-02-11 08:01 | P.PCN ---
Date of Procedure: 02/11/24 Procedure(s) Performed: Procedure= trigger point injections lumbar paraspinal muscles bilaterally , 2 on the right side from L2 to S1, and 3 on the left side from L2 to S1 Preoperative diagnosis= 1-myofascial pain syndrome lumbar paraspinal muscles 2-lumbar degenerative disc disease 3-lumbar facet arthropathy Postoperative diagnosis=Same as preop Diagnosis . Complication = none Condition= stable Anesthesia= none Indication for the procedure= patient complaining of low back pain , examination was positive for multiple trigger point in the lumbar paraspinal muscles bilaterally and patient diagnosed with myofascial pain syndrome and is here to have trigger point injections Description of the procedure= procedure risk and benefits discussed with the patient, including but not limited, risk of infection and bleeding, and ALLERGIC reaction to the medication and not complete pain relief and patient agreed with the preceding patient taken to the operating room, placed in sitting position or standard monitors applied to the patient then after induction of anesthesia back prepped with chlorhexidine 3 times , then under sterile technique each of the trigger point that was marked in the preop holding area 2 on the right side lumbar paraspinal muscles and 3 on the left side lumbar paraspinal muscles each one of them injected with the 2 mL of the mixture of ropivacaine 0.5% 10 ML mixed with 40 mg of Depo-Medrol and 2 mL of the mixture injected at each trigger point after negative aspiration, using 25-gauge needle, injection done after negative aspiration under was no paresthesia during the injection patient tolerated the procedure well without any complications and he will follow up in the pain clinic in a few weeks
[2024-02-11 08:19] VITALS: BP 177/75; PULSE 46
== END 2024-02-11 08:26 | disposition home or self-care (01) ==
LOC: ORPAIN 06:34
PROVIDERS: ATTEND Specialist
DX: M79.18 Myalgia, other site (principal); M51.36 Other intervertebral disc degeneration, lumbar region; M47.816 Spondylosis without myelopathy or radiculopathy, lumbar region; Z79.1 Long term (current) use of non-steroidal anti-inflammatories (NSAID); Z88.2 Allergy status to sulfonamides
CPT/HCPCS: 20553; J2795; J1010

== ENCOUNTER → 2024-02-29 | Outpatient (CLI) | payer MEDICARE ==
[2024-02-29 10:37] VITALS: BP 148/65; PULSE 48; RESP 16
--- NOTE | 2024-02-29 13:18 | P.PAINPG ---
PQRS Measure Charge Sheet Comment: A 78 yr old male w at side with a history of severe and chronic LBP secondary to lumbar DDD and spondylosis with facet arthropathy without myelopathy presents today for evaluation s/p BL TPIs L2-S1 #1. Pt states he experienced 70 % pain relief x 3 wks s/p procedure. Pain level is provoked at 3 /10 in intensity, constant, localized in the lumbar spine, stabbing in character w shooting pain to the R toes. Pain is provoked by standing/ lifting/ bending. Pain is alleviated with PT w massage x 2 wks in 2019, physician guided home exercises daily since 2019, heat, medications, use of massage chair at home, sitting, repositioning and rest. Oswestry axial pain score of 19. Interventional pain procedures completed include BL RFA L3-L5 (Oct 2022), RIVAS L5-S1 x3, R paramedian RIVAS L5-S1 x2, BL TPIs L2-S1 x1 Patient is currently on Ibu Patient denies any side effects of the medication(s), denies excessive drowsiness or sleepiness, denies suicidal ideation and reports that the current pain medication is helping to control the pain and improve activities of daily living. Patient denies any motor or sensory deficits. Patient denies any fever or night sweats, denies any change in the bowel movements or urination. Physical Examination: -Constitutional: Cooperative. Not in acute distress . - Neurologic: Cranial nerve II to XII intact. No focal neurological deficits. - Psychatric: Alert & oriented x 3. Matching mood & appropriate affect. Judgment and insight intact. - Musculoskeletal: Cervical spine: Muscle bulk/ tone/ strength in the bilateral upper extremities normal Vertebral body tenderness to palpation over Spurling test positive Distraction test positive Facet loading test positive TTP Thoracic spine Muscle bulk / tone/ strength in the bilateral paraspinal muscles normal Vertebral body tender to palpation over Facet loading test positive TTP Lumbar spine: Motor bulk/ tone/ strength lower extremities , thigh and legs : 5/5 Deep tendon reflexes : Normal Knee Jerk. Normal Ankle Jerk . Vertebral body tenderness to palpation Frederick Test positive Taut bands w twitch response over BL L2-S1 Lumbar Facet Loading Test positive Straight Leg Raise: positive at 30 degrees right side/ left side Gaenslen's Test positive Sacral spine : Severe tenderness over the Sacroiliac joint: right side / left side Range of motion: Flexion of the lumbar spine <60 degrees Range of motion: Extension of the lumbar spine <20 degrees Gaenslen's Test positive right side / left side Dyana test: positive right side / left side Thigh Thrust Test positive right side / left side Sacral Thrust Test positive right side / left side Imaging: MRI non contrast of the lumbar spine from 12/04/23 reviewed Assessment and plan: Chronic LBP secondary to L4-L5 spinal stenosis, DDD, spondylosis with facet arthropathy without myelopathy PT script provided M51.36. All questions answered. I have spent less than 30 minutes on patient care today. Dr Rosales was available by phone for the evaluation of this patient. The time was used to review the medical records including relevant urine studies and Prescription history (MAPs), review of the available imaging, evaluation and examination of the patient, coordination of care with the medical staff and if applicable referring physicians, as well as creation of the medical record PQRS Narrative: Smoking Status Former smoker Hx Alcohol Use (MH) No Home Medications: Ambulatory Orders Ibuprofen [Motrin] 800 mg PO TID PRN 04/23/17 Losartan/Hydrochlorothiazide [Losartan-Hctz 100-12.5 mg Tab] 1 tab PO QAM 0 04/23/17 Omeprazole 20 mg PO QAM 04/23/17 amLODIPine [Norvasc] 5 mg PO QAM 04/23/17 atenoloL 25 mg PO BID 04/23/17 Multivitamins, Thera [Multivitamin (formulary)] 1 each PO DAILY 03/26/22 Sodium Bicarbonate 2 tab PO DAILY 04/14/23 Vits A,C,E/Lutein/Minerals [Ocuvite with Lutein Tablet] 1 each PO DAILY 04/14/23 methocarbamoL [Robaxin] 500 mg PO BID PRN 30 Days #60 tab 01/28/24 Controlled Substance Measures - Controlled Substance Measures Is patient prescribed a controlled substance at discharge?: No
== END ==
LOC: PNWHC3 10:06
PROVIDERS: ATTEND Specialist
DX: M51.37 Other intervertebral disc degeneration, lumbosacral region (principal); M47.817 Spondylosis without myelopathy or radiculopathy, lumbosacral region; M48.061 Spinal stenosis, lumbar region without neurogenic claudication; Z87.891 Personal history of nicotine dependence; Z88.2 Allergy status to sulfonamides
CPT/HCPCS: 99211

== ENCOUNTER → 2025-01-04 | Outpatient (CLI) | payer MEDICARE ==
[2025-01-04 07:49] VITALS: BP 168/72; PULSE 47; RESP 16; TEMP 97.7
--- NOTE | 2025-01-04 15:52 | P.PAINPG ---
PQRS Measure Charge Sheet Comment: A 79 yr old male w at side with a history of severe and chronic LBP secondary to radiculopathy, spondylosis with facet arthropathy without myelopathy presents today for evaluation. Pt underwent a BL RFA L4-L5/ L5-S1 in Oct 2022 where he experienced 75% pain relief x 1.75 yrs s/p procedure. Pain level is provoked at 8 /10 in intensity, constant, localized in the lumbar spine, predominantly axial, stabbing in character without shooting pain. Pain is provoked by standing/ lifting/ bending. Pain is alleviated with PT w massage x 2 wks in 2018, physician guided home exercises daily since 2019, heat, medications, use of massage chair at home, sitting, repositioning and rest. Interventional pain procedures completed include BL RFA L3-L5 (Oct 2022), RIVAS L5-S1 x3, R paramedian RIVAS L5-S1 x2, BL TPIs L2-S1 x1 (02/21) Patient is currently on Ibu Patient denies any side effects of the medication(s), denies excessive drowsiness or sleepiness, denies suicidal ideation and reports that the current pain medication is helping to control the pain and improve activities of daily living. Patient denies any motor or sensory deficits. Patient denies any fever or night sweats, denies any change in the bowel movements or urination. Physical Examination: -Constitutional: Cooperative. Not in acute distress . - Neurologic: Cranial nerve II to XII intact. No focal neurological deficits. - Psychatric: Alert & oriented x 3. Matching mood & appropriate affect. Judgment and insight intact. - Musculoskeletal: Cervical spine: Muscle bulk/ tone/ strength in the bilateral upper extremities normal Vertebral body tenderness to palpation over Spurling test positive Distraction test positive Facet loading test positive TTP Thoracic spine Muscle bulk / tone/ strength in the bilateral paraspinal muscles normal Vertebral body tender to palpation over Facet loading test positive TTP Lumbar spine: Motor bulk/ tone/ strength lower extremities , thigh and legs : 5/5 Deep tendon reflexes : Normal Knee Jerk. Normal Ankle Jerk . Vertebral body tenderness to palpation Frederick Test positive Taut bands w twitch response over BL L2-S1 Lumbar Facet Loading Test positive BL L4-L5/ L5-S1 Straight Leg Raise: positive at 30 degrees right side/ left side Gaenslen's Test positive Sacral spine : Severe tenderness over the Sacroiliac joint: right side / left side Range of motion: Flexion of the lumbar spine <60 degrees Range of motion: Extension of the lumbar spine <20 degrees Gaenslen's Test positive right side / left side Dyana test: positive right side / left side Thigh Thrust Test positive right side / left side Sacral Thrust Test positive right side / left side Imaging: MRI non contrast of the lumbar spine from 12/04/23 reviewed Assessment and plan: Chronic LBP secondary to L4-L5 spinal stenosis, radiculopathy, spondylosis with facet arthropathy without myelopathy Recommendation of BL RFA L4-L5/L5-S1. Risk, benefits of procedure discussed and patient verbalized understanding. Protocol for discontinuation/continuation of medication surrounding procedure discussed. Minimal anesthesia including Fentanyl and Versed if clinically indicated. All questions answered. I have spent less than 30 minutes on patient care today. Dr Rosales was available by phone for the evaluation of this patient. The time was used to review the medical records including relevant urine studies and Prescription history (MAPs), review of the available imaging, evaluation and examination of the patient, coordination of care with the medical staff and if applicable referring physicians, as well as creation of the medical record - Pain Location Bilateral Lower Back Non-Pharmacological Interventions: Heat, Ice, Inactivity, Physical Therapy, Position/Reposition, Relaxation Technique, Sitting, Standing Pharmacological Interventions: Block, Epidural, PRN Medication, Topical Medication PQRS Narrative: Smoking Status Former smoker Hx Alcohol Use (MH) No Home Medications: Ambulatory Orders Ibuprofen [Motrin] 800 mg PO TID PRN 04/23/17 Losartan/Hydrochlorothiazide [Losartan-Hctz 100-12.5 mg Tab] 1 tab PO QAM 04/23/17 Omeprazole 20 mg PO QAM 04/23/17 amLODIPine [Norvasc] 5 mg PO QAM 04/23/17 atenoloL 25 mg PO BID 04/23/17 Multivitamins, Thera [Multivitamin (formulary)] 1 each PO DAILY 03/26/22 Sodium Bicarbonate 2 tab PO DAILY 04/14/23 Vits A,C,E/Lutein/Minerals [Ocuvite with Lutein Tablet] 1 each PO DAILY 04/14/23 Diclofenac Sodium Gel [Voltaren 1% Gel] 2 gm TOPICAL QID 01/04/25 Mv-Mn/Om3/Dha/Epa/Fish/Lut/Pramod [Ocuvite Adult 50 Plus Softgel] 1 each PO 01/04/25 Tamsulosin [Flomax] 0.4 mg PO DAILY 01/04/25 Controlled Substance Measures - Controlled Substance Measures Is patient prescribed a controlled substance at discharge?: No
== END ==
LOC: PNWHC3 07:02
PROVIDERS: ATTEND Specialist
DX: M47.26 Other spondylosis with radiculopathy, lumbar region (principal); M48.061 Spinal stenosis, lumbar region without neurogenic claudication; Z88.2 Allergy status to sulfonamides; Z87.891 Personal history of nicotine dependence
CPT/HCPCS: 99211

== ENCOUNTER → 2025-03-09 | Outpatient (CLI) | payer MEDICARE ==
[2025-03-09 08:22] VITALS: BP 173/72; PULSE 66; RESP 18
--- NOTE | 2025-03-09 12:29 | P.PAINPG ---
PQRS Measure Charge Sheet Comment: A 79 yr old male w at side with a history of severe and chronic LBP secondary to radiculopathy, spondylosis with facet arthropathy without myelopathy presents today for evaluation s/p BL RFA L4-L5/L5-S1. Pt states he experienced 90% pain relief s/p procedure. Pain level is provoked at 2 /10 in intensity, constant, localized in the lumbar spine, predominantly axial, stabbing in character without shooting pain. Pain is provoked by standing/ lifting/ bending. Pain is alleviated with PT w massage x 2 wks in 2019, physician guided home exercises daily since 2019, heat, medications, use of massage chair at home, sitting, repositioning and rest. Interventional pain procedures completed include BL RFA L3-L5 (Oct 2022, 01/17/25), RIVAS L5-S1 x3, R paramedian RIVAS L5-S1 x2, BL TPIs L2-S1 x1 (02/21) Patient is currently on Ibu Patient denies any side effects of the medication(s), denies excessive drowsin ess or sleepiness, denies suicidal ideation and reports that the current pain medication is helping to control the pain and improve activities of daily living. Patient denies any motor or sensory deficits. Patient denies any fever or night sweats, denies any change in the bowel movements or urination. Physical Examination: -Constitutional: Cooperative. Not in acute distress . - Neurologic: Cranial nerve II to XII intact. No focal neurological deficits. - Psychatric: Alert & oriented x 3. Matching mood & appropriate affect. Judgment and insight intact. - Musculoskeletal: Cervical spine: Muscle bulk/ tone/ strength in the bilateral upper extremities normal Vertebral body tenderness to palpation over Spurling test positive Distraction test positive Facet loading test positive TTP Thoracic spine Muscle bulk / tone/ strength in the bilateral paraspinal muscles normal Vertebral body tender to palpation over Facet loading test positive TTP Lumbar spine: Motor bulk/ tone/ strength lower extremities , thigh and legs : 5/5 Deep tendon reflexes : Normal Knee Jerk. Normal Ankle Jerk . Vertebral body tenderness to palpation Frederick Test positive Taut bands w twitch response over BL L2-S1 Lumbar Facet Loading Test positive BL L4-L5/ L5-S1 Straight Leg Raise: positive at 30 degrees right side/ left side Gaenslen's Test positive Sacral spine : Severe tenderness over the Sacroiliac joint: right side / left side Range of motion: Flexion of the lumbar spine <60 degrees Range of motion: Extension of the lumbar spine <20 degrees Gaenslen's Test positive right side / left side Dyana test: positive right side / left side Thigh Thrust Test positive right side / left side Sacral Thrust Test positive right side / left side Imaging: MRI non contrast of the lumbar spine from 12/04/23 reviewed Assessment and plan: Chronic LBP secondary to L4-L5 spinal stenosis, radiculopathy, spondylosis with facet arthropathy without myelopathy Will manage residual pain and may RTC on an as needed basis. All questions answered. I have spent less than 30 minutes on patient care today. Dr Rosales was available by phone for the evaluation of this patient. The time was used to review the medical records including relevant urine studies and Prescription history (MAPs), review of the available imaging, evaluation and examination of the patient, coordination of care with the medical staff and if applicable referring physicians, as well as creation of the medical record - Pain Location Bilateral Lower Back Non-Pharmacological Interventions: Heat, Home Exercise, Massage, Physical Therapy Pharmacological Interventions: PRN Medication, Topical Medication PQRS Narrative: Smoking Status Former smoker Hx Alcohol Use (MH) No Home Medications: Ambulatory Orders Ibuprofen [Motrin] 800 mg PO TID PRN 04/23/17 Losartan/Hydrochlorothiazide [Losartan-Hctz 100-12.5 mg Tab] 1 tab PO QAM 04/23/17 Omeprazole 20 mg PO QAM 04/23/17 amLODIPine [Norvasc] 5 mg PO QAM 04/23/17 atenoloL 25 mg PO BID 04/23/17 Sodium Bicarbonate 2 tab PO DAILY 04/14/23 Vits A,C,E/Lutein/Minerals [Ocuvite with Lutein Tablet] 1 each PO DAILY 04/14/23 Diclofenac Sodium Gel [Voltaren 1% Gel] 2 gm TOPICAL QID 01/04/25 Mv-Mn/Om3/Dha/Epa/Fish/Lut/Pramod [Ocuvite Adult 50 Plus Softgel] 1 each PO DAILY 01/04/25 Tamsulosin [Flomax] 0.4 mg PO DAILY 01/04/25 Controlled Substance Measures - Controlled Substance Measures Is patient prescribed a controlled substance at discharge?: No
== END ==
LOC: PNWHC3 07:43
PROVIDERS: ATTEND Specialist
DX: M47.26 Other spondylosis with radiculopathy, lumbar region (principal); Z88.2 Allergy status to sulfonamides; Z87.891 Personal history of nicotine dependence
CPT/HCPCS: 99211